=== PATIENT | female | born 1980 | race Caucasian/White ===

== ENCOUNTER 2017-02-11 14:33 | Observation (INO) ==
--- NOTE | 2017-02-11 14:45 | Emergency Department Note ---
Disposition Clinical Impression: Suicidal ideation Amitriptyline overdose Qualifiers: Encounter type: initial encounter Injury intent: intentional self-harm Qualified Code(s): T43.012A - Poisoning by tricyclic antidepressants, intentional self-harm, initial encounter Disposition: Admitted As Inpatient Condition: Undetermined Referrals: NONE,PCP [Primary Care Provider] - Forms: ED Satisfaction Letter Time of Disposition: 16:42 Psych HPI - General Chief Complaint: ED Psychiatric Symptoms Stated Complaint: SI Time Seen by Provider: 02/11/17 14:34 Source: patient, EMS Mode of arrival: EMS Limitations: no limitations Nursing Notes Reviewed: Yes Vital Signs Reviewed: Yes - History of Present Illness HPI Narrative: 37-year-old female with history of depression and previous suicidal ideation arrives to [facility] emergency department with concern for suicidal ideation and depression as well as patient taking 3-4 tablets of unknown dosage of amitriptyline as well as unknown doses and roughly 10-14 tablets of trazodone. The patient took the trazodone of the course of the past 10 hours. The amitriptyline was taken also over the course of the past 12 hours. EMS was called by family member and patient with concern for suicidal ideation. The patient demonstrated no tachycardia and no hypotension upon arrival from EMS in transport to the hospital. The patient is awake and alert but states she is very tired at this time. She denies any other complaints. She is resting comfortably in the room and following all commands appropriately. Pt complaint: suicidal ideation, feels depressed If medical clearance, reason: psychiatric condition Onset (ago): unknown History of similar episodes: Yes Improves with: none Worsens with: none Alleged intoxication: No Associated Psychiatric Symptoms: depression, suicidal ideation, auditory hallucinations, visual hallucinations Associated symptoms: Reports: insomnia Traumatic symptoms: denies traumatic injury Treatments prior to arrival: none Self harm or harm to others: admits thoughts of self harm, intentional overdose - Related Data Home Medications Medication Instructions Recorded Confirmed Divalproex (24 HR) [Depakote ER 500 mg PO Q12H 02/11/17 02/11/17 (24 HR)] Gabapentin [Neurontin] 400 mg PO TID 02/11/17 02/11/17 Melatonin [Melatonin] 5 mg PO HS 02/11/17 02/11/17 Allergies Allergy/AdvReac Type Severity Reaction Status Date / Time No Known Allergies Allergy Verified 01/25/15 15:32 All systems ED: reviewed and negative except as stated. Constitutional: Denies: fever, chills, weakness, weight change Eyes: Denies: vision change ENT ED: Denies: ear pain, congestion Cardiovascular: Denies: chest pain, palpitations, dyspnea on exertion, edema, syncope Respiratory: Denies: cough, dyspnea, wheezes Gastrointestinal: Denies: abdominal pain, nausea, vomiting Musculoskeletal: Denies: back pain, myalgia Neurological: Denies: headache, numbness, confusion, abnormal gait, vertigo Psychiatric: Reports: depression, suicidal thoughts, auditory hallucinations, visual hallucinations. Denies: homicidal thoughts Past Medical History - Past Medical History Attestation: Yes The following information was validated with the patient. Source: patient Medical history: Reports: no medical history, non-contributory Surgical history: Reports: Psychiatric history: Reports: anxiety, bipolar, depression, panic disorder, previous psychiatric hospitalization ANIME ARTIST history: Reports: no ANIME ARTIST history - Social History Smoking Status: Current every day smoker Smokeless Tobacco Status: No Alcohol use: Reports: none Drug use: Reports: opiates, marijuana, IV Drug Use, other Physical Exam - General Limitations: no limitations General appearance: alert, in no apparent distress - Head Head exam: atraumatic, normocephalic, normal inspection - Eye Eye exam: Present: normal appearance, PERRL, EOMI - ENT ENT exam: normal exam, normal oropharynx, mucous membranes moist - Neck Neck exam: Present: normal inspection, full ROM, trachea midline - Chest Chest inspection: Present: normal inspection, symmetric chest wall rise - Respiratory Respiratory exam: Present: normal lung sounds bilaterally - Cardiovascular Cardiovascular exam: Present: regular rate, normal rhythm, normal heart sounds - Abdominal Exam Abdominal exam: Present: soft, Non-Tender. Absent: tenderness, distention, guarding, rebound, rigidity - Extremities Exam Extremities exam: Present: normal inspection, full ROM. Absent: tenderness, pedal edema - Neurological Exam Neurological exam: Present: alert, oriented X3, CN II-XII intact - Psychiatric Psychiatric exam: Present: depressed, flat affect Course - Reevaluation(s) Reevaluation #1: spoke to Meliza in the [facility]. Time: 14:49 Vital Signs Temperature 97.5 F L 02/11/17 14:34 Pulse Rate 91 02/11/17 14:34 Respiratory Rate 16 02/11/17 14:34 Blood Pressure 151/101 02/11/17 14:34 O2 Sat by Pulse Oximetry 99 02/11/17 14:34 Temperature 97.5 F L 02/11/17 14:34 Pulse Rate 91 02/11/17 14:34 Respiratory Rate 16 02/11/17 14:34 Blood Pressure 151/101 02/11/17 14:34 O2 Sat by Pulse Oximetry 99 02/11/17 14:34 Oxygen Delivery Oxygen Delivery Room Air Psych - MDM Narrative Medical decision making narrative: patient's workup demonstrates no acute findings in the emergency Department. Given the patient's unknown dosage and amount of amitriptyline that she took, we will admit the patient to the hospitalist for further observation. All 3 EKGs performed here in the emergency department demonstrate no QTC prolongation or changes noted. We will admit the patient to the hospitalist service, accepted by Dr. Lopez. - Lab Data Result diagrams: 02/11/17 14:49 02/11/17 14:49 Lab Results 02/11/17 02/11/17 02/11/17 Range/Units 14:49 14:49 15:45 WBC 7.2 (4.3-11.1) K/mcL RBC 5.46 H (3.82-4.97) M/mcL Hgb 13.5 (11.5-15.4) g/dL Hct 42.3 (35.3-44.9) % MCV 77.5 L (83.0-100.0) fL MCH 24.7 L (28.0-33.3) pg MCHC 31.9 (31.6-35.5) g/dL RDW 18.1 H (11.5-14.5) % Plt Count 291 (140-400) K/mcL MPV 9.6 (9.4-12.4) fL Immature Gran % 0.3 (0-4) % Seg Neutrophils % 66.2 % Lymphocytes % 25.6 % Monocytes % 6.8 % Eosinophils % 0.7 % Basophils % 0.4 % Neutrophils # 4.8 (1.6-8.9) K/mcL Lymphocytes # 1.8 (0.6-4.6) K/mcL Monocytes # 0.5 (0.0-1.3) K/mcL Eosinophils # 0.1 (0.0-0.6) K/mcL Basophils # 0.0 (0.0-0.2) K/mcL Sodium 143 (136-145) mEq/L Potassium 3.9 (3.5-4.5) mEq/L Chloride 111 H (98-109) mEq/L Carbon Dioxide 24 (19-29) mEq/L BUN 8 (7-20) mg/dL Creatinine 0.83 (0.57-1.11) mg/dL Est GFR ( Amer) > 60 (> 60) Est GFR (Non-Af Amer) > 60 (> 60) BUN/Creatinine Ratio 10 (6-26) Glucose 89 (70-99) mg/dL Calculated Osmolality 294 (280-300) Calcium 9.5 (8.6-10.8) mg/dL Total Bilirubin 0.5 (0.2-1.2) mg/dL Direct Bilirubin 0.2 (0.0-0.5) mg/dL Indirect Bilirubin 0.3 (0.0-1.2) mg/dL AST 68 H (5-34) Units/L ALT 135 H (0-55) Units/L Alkaline Phosphatase 85 (38-126) Units/L Serum Total Protein 8.2 (6.0-8.3) g/dL Albumin 3.6 (3.5-5.0) g/dL Globulin 4.6 H (2.4-3.5) g/dL Albumin/Globulin Ratio 0.8 L (1.1-2.2) Urine Color Yellow (Yellow) Urine Clarity Clear (Clear) Urine pH 7.0 (5.0-8.0) pH Units Ur Specific [place] 1.013 (1.010-1.025) Urine Protein Negative (Neg-Trace) mg/dL Urine Glucose (UA) Normal (Normal) mg/dL Urine Ketones Negative (Negative) mg/dL Urine Blood Negative (Negative) Urine Nitrite Negative (Negative) Urine Bilirubin Negative (Negative) Urine Urobilinogen Normal (Normal) mg/dL Ur Leukocyte Esterase Moderate H (Negative) Urine Microscopic WBC 0-3 (0-3) per hpf Ur Squamous Epith Cells Few (None-Few) per lpf Salicylates < 5.0 L (15-30) mg/dL Acetaminophen < 1.0 L (10-30) mcg/mL Ethyl Alcohol < 10 (0-10) mg/dL - EKG Data EKG attestation: Yes I reviewed and interpreted this EKG. EKG results narrative: Heart rate 82 bpm. LA interval 128 ms. QTC 426 ms. Normal axis. Normal sinus rhythm. No ST elevation or ST depression noted. EKG #2 heart rate 78 bpm. LA interval 112 ms. QTc 449 ms. Normal axis. Normal sinus rhythm with no ST elevation or ST depression noted. EKG #3: Heart rate 95 bpm. QTc 425 ms. Normal axis. Normal sinus rhythm. No ST elevation or ST depression noted. Psychiatric Medical Clearance - Medical Clearance Checklist Medical History: Suicidal ideation (Acute) Amitriptyline overdose (Acute) Abdominal pain (Inactive) Abscess of skin or subcutaneous tissue (Inactive) Back pain (Inactive) Bronchitis (Inactive) Hypertension (Inactive) Lumbar back pain (Inactive) Lumbar pain (Inactive) Muscle spasm (Inactive) Sprain of ribs, initial encounter (Inactive) Strain of lumbar region (Inactive) Thoracic back pain (Inactive) No Social History Section defined Current Vitals: Last Vital Signs Temp 97.5 F L 02/11/17 14:34 Pulse 91 02/11/17 14:34 Resp 16 02/11/17 14:34 BP 151/101 02/11/17 14:34 Pulse Ox 99 02/11/17 14:34 Psychiatric Lab Panel: Drug Levels and Toxicity 02/11/17 14:49 Acetaminophen < 1.0 L Ethyl Alcohol < 10 Abnormal Labs: Abnormal lab results RBC 5.46 M/mcL (3.82-4.97) H 02/11/17 14:49 MCV 77.5 fL (83.0-100.0) L 02/11/17 14:49 MCH 24.7 pg (28.0-33.3) L 02/11/17 14:49 RDW 18.1 % (11.5-14.5) H 02/11/17 14:49 Chloride 111 mEq/L (98-109) H 02/11/17 14:49 AST 68 Units/L (5-34) H 02/11/17 14:49 ALT 135 Units/L (0-55) H 02/11/17 14:49 Globulin 4.6 g/dL (2.4-3.5) H 02/11/17 14:49 Albumin/Globulin Ratio 0.8 (1.1-2.2) L 02/11/17 14:49 Ur Leukocyte Esterase Moderate (Negative) H 02/11/17 15:45 Salicylates < 5.0 mg/dL (15-30) L 02/11/17 14:49 Acetaminophen < 1.0 mcg/mL (10-30) L 02/11/17 14:49 Statement of Medical Clearance: I have evaluated the patient, reviewed diagnostic information, and certify that the patient's medical condition is sufficiently stable that transfer to the psychiatric unit does not pose a significant risk of deterioration.
[2017-02-11 15:04] LABS: Basophils % 0.4 %; Eosinophils # 0.1 K/mcL (0.0-0.6); Eosinophils % 0.7 %; Hematocrit 42.3 % (35.3-44.9); Hemoglobin 13.5 g/dL (11.5-15.4); Immature Granulocytes % 0.3 % (0-4); Lymphocytes # 1.8 K/mcL (0.6-4.6); Lymphocytes % 25.6 %; Mean Corpuscular HGB Conc 31.9 g/dL (31.6-35.5); Mean Corpuscular Hemoglobin 24.7 pg (28.0-33.3); Mean Corpuscular Volume 77.5 fL (83.0-100.0); Mean Platelet Volume 9.6 fL (9.4-12.4); Monocytes # 0.5 K/mcL (0.0-1.3); Monocytes % 6.8 %; Neutrophils # 4.8 K/mcL (1.6-8.9); Platelet Count 291 K/mcL (140-400); Red Blood Count 5.46 M/mcL (3.82-4.97); Red Cell Distribution Width 18.1 % (11.5-14.5); Segmented Neutrophils % 66.2 %
[2017-02-11 15:21] LABS: Alanine Aminotransferase 135 Units/L (0-55); Albumin 3.6 g/dL (3.5-5.0); Albumin/Globulin Ratio 0.8 (1.1-2.2); Alkaline Phosphatase 85 Units/L (38-126); Aspartate Amino Transferase 68 Units/L (5-34); BUN/Creatinine Ratio 10 (6-26); Bilirubin,Direct 0.2 mg/dL (0.0-0.5); Bilirubin,Indirect 0.3 mg/dL (0.0-1.2); Bilirubin,Total 0.5 mg/dL (0.2-1.2); Blood Urea Nitrogen 8 mg/dL (7-20); Calcium 9.5 mg/dL (8.6-10.8); Carbon Dioxide 24 mEq/L (19-29); Chloride 111 mEq/L (98-109); Globulin 4.6 g/dL (2.4-3.5); Glucose 89 mg/dL (70-99); Osmolality,Calculated 294 (280-300); Potassium 3.9 mEq/L (3.5-4.5); Salicylate < 5.0 mg/dL (15-30); Sodium 143 mEq/L (136-145); Total Protein 8.2 g/dL (6.0-8.3); eGFR For African Americans > 60 (> 60); eGFR For Non-African Americans > 60 (> 60)
--- NOTE | 2017-02-11 15:26 | Emergency Department Note ---
START Narrative - START START: I examined this patient and my medical decision-making was reviewed with the Resident Physician. I agree with the documented findings, disposition and treatment plan as described except to the extent set forth below. 37-year-old female presents emergency room for depression. She has also had some suicidal thoughts. She took too much for medication last night which included trazodone amitriptyline. She has had no reports of vomiting. She has no complaints at this time. She denies any homicidal or suicidal thoughts to me but states she does feel depressed and just wanted to sleep. Plan to check labs. EKG appeared unremarkable. There is no issue with any QT prolongation. Patient will have a psychiatric evaluation and possible placement. Her vitals have remained stable.
[2017-02-11 15:57] LABS: Acetaminophen < 1.0 mcg/mL (10-30)
[2017-02-11 16:09] LABS: Ethanol < 10 mg/dL (0-10)
[2017-02-11 16:17] LABS: Bilirubin,Urine Negative (Negative); Blood,Urine Negative (Negative); Clarity,Urine Clear (Clear); Color,Urine Yellow (Yellow); Glucose,Urine (UA) Normal (Normal); Ketones,Urine Negative (Negative); Specific Gravity,Urine 1.013 (1.010-1.025)
[2017-02-11 16:18] LABS: Leukocyte Esterase,Urine Moderate (Negative); Nitrite,Urine Negative (Negative); Protein,Urine Negative (Neg-Trace); Urobilinogen,Urine Normal (Normal)
[2017-02-11 16:20] LABS: Squamous Epithelial Cell,Urine Few per lpf (None-Few)
[2017-02-11 16:21] LABS: WBC,Urine 0-3 per hpf (0-3)
[2017-02-11 17:00] LABS: Amphetamine Screen,Urine Positive ng/mL (Cutoff=1000); Barbiturate Screen,Urine Negative ng/mL (Cutoff=200); Benzodiazepines Screen,Urine Negative ng/mL (Cutoff=200); Cannabinoid Screen,Urine Positive ng/mL (Cutoff = 50); Cocaine Screen,Urine Negative ng/mL (Cutoff= 300); Opiate Screen,Urine Negative ng/mL (Cutoff=300); Phencyclidine Screen,Urine Negative ng/mL (Cutoff=25)
[2017-02-11] MEDS ORDERED: Naloxone 0.4 MG/ML INJ IVP PRN (19:15)
[2017-02-11] MEDS ORDERED: Acetaminophen 325 MG TABLET PO PRN (19:15)
[2017-02-11] MEDS ORDERED: Ondansetron 4 MG/2 ML VIAL IVP PRN (19:15)
--- NOTE | 2017-02-11 19:28 | Internal Med History&Physical ---
Date of Encounter: 02/11/17 Time of Encounter: 05:00 Assessment and Plan (1) Insomnia Current visit: Yes Status: Acute Qualifiers: Insomnia type: psychophysiologic Qualified Code(s): F51.04 - Psychophysiologic insomnia (2) Drug overdose Current visit: Yes Status: Acute Based on patient evaluation most likely she has bipolar with bentley induced by drug use. Looking at her medication record the patient was on valproic acid most likely she was using for bipolar disorder. Patient is currently not on this medication. Psychiatry was contacted to evaluate the patient ankur starting noticed nebulizer. For now after contacting poison control patient need to be monitored for next 24-hour for any prolonged QT, we will check urine tox screen Qualifiers: Encounter type: initial encounter Injury intent: accidental or unintentional Qualified Code(s): T50.901A - Poisoning by unspecified drugs, medicaments and biological substances, accidental (unintentional), initial encounter (3) Drug use Current visit: Yes Status: Acute May need drug rehabilitation on discharge (4) Tobacco use Current visit: Yes Status: Acute Add nicotine patch (5) HTN (hypertension) Current visit: Yes Status: Acute Add hydralazine as needed Qualifiers: Hypertension type: essential hypertension Qualified Code(s): I10 - Essential (primary) hypertension Internal Medicine - H&P: HPI Chief complaint: taking grandmother medication to help her to sleep Admitted From: Emergency Dept Plans for Post Hospital Care: Transfer Psych Facility History of present illness: Ms. Nuñez is a 37 year old female with past medical history of insomnia. Patient stated she used to take valproic acid gabapentin and melatonin. Patient is currently run out of her medication. Patient is complaining of racing thoughts. Patient denies any suicidal or homicidal ideation. Patient denies any delusion or hallucination. Patient stated she was trying to sleep she took 3 tablets of amitriptyline and 5 tablet of trazodone from her grandmother medication to help her to sleep. Patient stated that she could not sleep at all. Patient came to emergency room for further evaluation. Patient denies any chest pain or shortness of breath. Patient denies any palpitation. Patient denies any motor or sensory changes. Patient has history of drug use. Patient stated that she is taking any drugs that she can find including cocaine Heroin, marijuana, mushrooms, when asked to the patient if she taking any other recreational drugs she stated what ever she has she will take . Past Med Surg Social Fam HX - Past Medical History Psychiatric history: anxiety, bipolar, depression, panic disorder, previous psychiatric hospitalization - Past Surgical History Surgical History: - Social History Smoking Status: Current every day smoker Smokeless Tobacco Status: No Alcohol use: none Drug use: opiates, marijuana, IV Drug Use, other Internal Medicine - H&P: Meds Divalproex (24 HR) [Depakote ER (24 HR)] 500 mg PO Q12H 02/11/17 [History] Gabapentin [Neurontin] 400 mg PO TID 02/11/17 [History] Melatonin [Melatonin] 5 mg PO HS 02/11/17 [History] 3 Allergy/AdvReac Type Severity Reaction Status Date / Time No Known Allergies Allergy Verified 01/25/15 15:32 All Systems PM: A 10-system review of systems was performed and is negative for pertinent findings except as documented above in the HPI. - Constitutional Constitutional: no chills, no fever(s), no malaise - Constitutional Vitals: Temp Pulse Resp BP Pulse Ox 98.2 F 91 18 150/111 99 02/11/17 18:37 02/11/17 18:37 02/11/17 18:37 02/11/17 18:37 02/11/17 18:37 General appearance: Present: A&O X 3, obese - Head Head exam: Present: atraumatic, normocephalic - Neck Neck exam general surgery: Present: supple, trachea midline. Absent: lymphadenopathy - Respiratory Respiratory exam: Present: CTAB. Absent: accessory muscle use, rales, rhonchi, wheezes Internal Med - H&P Results - Labs CBC & Chem 7: 02/11/17 14:49 02/11/17 14:49
[2017-02-11 21:06] LABS: Basophils % 0.3 %; Eosinophils # 0.1 K/mcL (0.0-0.6); Eosinophils % 1.4 %; Hematocrit 40.6 % (35.3-44.9); Hemoglobin 12.9 g/dL (11.5-15.4); Immature Granulocytes % 0.3 % (0-4); Lymphocytes # 2.2 K/mcL (0.6-4.6); Lymphocytes % 27.7 %; Mean Corpuscular HGB Conc 31.8 g/dL (31.6-35.5); Mean Corpuscular Hemoglobin 24.4 pg (28.0-33.3); Mean Corpuscular Volume 76.9 fL (83.0-100.0); Mean Platelet Volume 9.4 fL (9.4-12.4); Monocytes # 0.6 K/mcL (0.0-1.3); Monocytes % 7.2 %; Neutrophils # 4.9 K/mcL (1.6-8.9); Platelet Count 300 K/mcL (140-400); Red Blood Count 5.28 M/mcL (3.82-4.97); Red Cell Distribution Width 17.4 % (11.5-14.5); Segmented Neutrophils % 63.1 %
[2017-02-11 21:17] LABS: Magnesium 2.2 mg/dL (1.6-2.6); Phosphorous 4.2 mg/dL (2.3-4.7)
[2017-02-11 21:18] LABS: BUN/Creatinine Ratio 11 (6-26); Blood Urea Nitrogen 9 mg/dL (7-20); Calcium 9.6 mg/dL (8.6-10.8); Carbon Dioxide 25 mEq/L (19-29); Chloride 110 mEq/L (98-109); Glucose 106 mg/dL (70-99); Osmolality,Calculated 299 (280-300); Potassium 3.8 mEq/L (3.5-4.5); Sodium 145 mEq/L (136-145); eGFR For African Americans > 60 (> 60); eGFR For Non-African Americans > 60 (> 60)
[2017-02-11] MEDS: Nicotine 21 MG PATCH.TD24 TD SCH (21:22)
[2017-02-11] MEDS: 0.9 % Sodium Chloride 1,000 ML IVC SCH (21:24)
[2017-02-12] MEDS ORDERED: Ondansetron 4 MG/2 ML VIAL IVP PRN (01:44)
[2017-02-12] MEDS ORDERED: Ondansetron 4 MG/2 ML VIAL IVP SCH (04:00)
[2017-02-12 05:07] VITALS: BP 158/96
[2017-02-12] MEDS: 0.9 % Sodium Chloride 1,000 ML IVC SCH (05:11)
[2017-02-12] MEDS: Nicotine 21 MG PATCH.TD24 TD SCH (09:02)
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
--- NOTE | 2017-02-12 14:30 | Consult Note ---
Date of Encounter: 02/12/17 Time of Encounter: 13:10 Assessment & Recommendation (1) Drug overdose Current visit: Yes Status: Acute Assessment & Recommendation: Patient is high risk for suicide. She will be admitted to a psychiatric unit on a pink slip for further evaluation and treatment. Qualifiers: Encounter type: subsequent encounter Injury intent: undetermined intent Qualified Code(s): T50.904D - Poisoning by unspecified drugs, medicaments and biological substances, undetermined, subsequent encounter (2) Polysubstance abuse Current visit: Yes Status: Chronic History of Present Illness Patient: new to practice Requesting Physician: Andrei Gerard MD Reason for consult: Suicide attempt by overdosing on medication History of present illness: Ms. Nuñez is a 37 year old female admitted to the hospital for evaluation treatment of drug overdose on trazodone and amitriptyline. Patient has history of bipolar disorder and substance abuse. UDS positive for THC and amphetamine. Patient is noncompliant with treatment or medication and previously attempted overdose and did not follow-up. Patient stated that she will continue to use drugs and alcohol and was not able to attend outpatient appointments and ran out of the medication as a result. She is not aware of what medication she was taking. Patient is suicidal risk and needed to be hospitalized in 1 A. CC: Andrei Gerard MD Past Med Surg Social Fam HX - Past Medical History Medical history: no medical history, non-contributory - Past Psychiatric History Psychiatric history: Reports: bipolar, previous psychiatric hospitalization Past psychiatric history details: Bipolar and substance abuse, history of hospitalization - Past Surgical History Surgical History: - Social History Smoking Status: Current every day smoker Smokeless Tobacco Status: No Alcohol use: none Drug use: opiates, marijuana, IV Drug Use, other Medications & Allergies Divalproex (24 HR) [Depakote ER (24 HR)] 500 mg PO Q12H 02/11/17 [History] Gabapentin [Neurontin] 400 mg PO TID 02/11/17 [History] Melatonin [Melatonin] 5 mg PO HS 02/11/17 [History] 3 Allergy/AdvReac Type Severity Reaction Status Date / Time No Known Allergies Allergy Verified 01/25/15 15:32 Review of Systems Psychiatric: Reports: suicidal ideation Mental Status Exam Patient orientation: Yes Person, Yes Time, Yes Place Level of alertness: Alert Patient appearance: Appropriate, Unkempt, Disheveled Behavior: cooperative, anxious, restless Psychomotor activity: Increased Eye contact: Maintains Eye Contact Mood description: Euthymic/stable, Anxious, Labile Affect description: congruent with mood, labile, dysphoric Speech pattern: Normal rate, Normal rhythm, Normal tone Speech volume: Normal Thought process: Linear, Goal Oriented, Racing Thought content: Yes Suicidal ideation, No Homicidal ideation, No Overt delusions Perceptual disturbances: No Auditory hallucinations, No Visual hallucinations Attention span: Capable of Focused Attention Memory description: Grossly Intact Patient reliability: Reliable Historian Intelligence estimate: Average Judgment: Limited Insight: Partial Results - Vital Signs Vital signs: Temp Pulse Resp BP Pulse Ox 98.3 F 71 16 158/96 100 02/12/17 05:06 02/12/17 05:06 02/12/17 05:06 02/12/17 05:06 02/12/17 05:06 - Labs Labs: Laboratory Last Values WBC 7.8 K/mcL (4.3-11.1) 02/11/17 20:58 RBC 5.28 M/mcL (3.82-4.97) H 02/11/17 20:58 Hgb 12.9 g/dL (11.5-15.4) 02/11/17 20:58 Hct 40.6 % (35.3-44.9) 02/11/17 20:58 MCV 76.9 fL (83.0-100.0) L 02/11/17 20:58 MCH 24.4 pg (28.0-33.3) L 02/11/17 20:58 MCHC 31.8 g/dL (31.6-35.5) 02/11/17 20:58 RDW 17.4 % (11.5-14.5) H 02/11/17 20:58 Plt Count 300 K/mcL (140-400) 02/11/17 20:58 MPV 9.4 fL (9.4-12.4) 02/11/17 20:58 Immature Gran % 0.3 % (0-4) 02/11/17 20:58 Seg Neutrophils % 63.1 % 02/11/17 20:58 Lymphocytes % 27.7 % 02/11/17 20:58 Monocytes % 7.2 % 02/11/17 20:58 Eosinophils % 1.4 % 02/11/17 20:58 Basophils % 0.3 % 02/11/17 20:58 Neutrophils # 4.9 K/mcL (1.6-8.9) 02/11/17 20:58 Lymphocytes # 2.2 K/mcL (0.6-4.6) 02/11/17 20:58 Monocytes # 0.6 K/mcL (0.0-1.3) 02/11/17 20:58 Eosinophils # 0.1 K/mcL (0.0-0.6) 02/11/17 20:58 Basophils # 0.0 K/mcL (0.0-0.2) 02/11/17 20:58 Sodium 145 mEq/L (136-145) 02/11/17 20:58 Potassium 3.8 mEq/L (3.5-4.5) 02/11/17 20:58 Chloride 110 mEq/L (98-109) H 02/11/17 20:58 Carbon Dioxide 25 mEq/L (19-29) 02/11/17 20:58 BUN 9 mg/dL (7-20) 02/11/17 20:58 Creatinine 0.83 mg/dL (0.57-1.11) 02/11/17 20:58 Est GFR ( Amer) > 60 (> 60) 02/11/17 20:58 Est GFR (Non-Af Amer) > 60 (> 60) 02/11/17 20:58 BUN/Creatinine Ratio 11 (6-26) 02/11/17 20:58 Glucose 106 mg/dL (70-99) H 02/11/17 20:58 Calculated Osmolality 299 (280-300) 02/11/17 20:58 Calcium 9.6 mg/dL (8.6-10.8) 02/11/17 20:58 Phosphorus 4.2 mg/dL (2.3-4.7) 02/11/17 20:58 Magnesium 2.2 mg/dL (1.6-2.6) 02/11/17 20:58 Total Bilirubin 0.5 mg/dL (0.2-1.2) 02/11/17 14:49 Direct Bilirubin 0.2 mg/dL (0.0-0.5) 02/11/17 14:49 Indirect Bilirubin 0.3 mg/dL (0.0-1.2) 02/11/17 14:49 AST 68 Units/L (5-34) H 02/11/17 14:49 ALT 135 Units/L (0-55) H 02/11/17 14:49 Alkaline Phosphatase 85 Units/L (38-126) 02/11/17 14:49 B-Natriuretic Peptide 15 pg/mL (0-100) 02/11/17 20:58 Serum Total Protein 8.2 g/dL (6.0-8.3) 02/11/17 14:49 Albumin 3.6 g/dL (3.5-5.0) 02/11/17 14:49 Globulin 4.6 g/dL (2.4-3.5) H 02/11/17 14:49 Albumin/Globulin Ratio 0.8 (1.1-2.2) L 02/11/17 14:49 Urine Color Yellow (Yellow) 02/11/17 15:45 Urine Clarity Clear (Clear) 02/11/17 15:45 Urine pH 7.0 pH Units (5.0-8.0) 02/11/17 15:45 Ur Specific [place] 1.013 (1.010-1.025) 02/11/17 15:45 Urine Protein Negative mg/dL (Neg-Trace) 02/11/17 15:45 Urine Glucose (UA) Normal mg/dL (Normal) 02/11/17 15:45 Urine Ketones Negative mg/dL (Negative) 02/11/17 15:45 Urine Blood Negative (Negative) 02/11/17 15:45 Urine Nitrite Negative (Negative) 02/11/17 15:45 Urine Bilirubin Negative (Negative) 02/11/17 15:45 Urine Urobilinogen Normal mg/dL (Normal) 02/11/17 15:45 Ur Leukocyte Esterase Moderate (Negative) H 02/11/17 15:45 Urine Microscopic WBC 0-3 per hpf (0-3) 02/11/17 15:45 Ur Squamous Epith Cells Few per lpf (None-Few) 02/11/17 15:45 Urine Test Negative (Negative) 02/11/17 15:45 Salicylates < 5.0 mg/dL (15-30) L 02/11/17 14:49 Urine Opiates Screen Negative ng/mL (Vmvhta=534) 02/11/17 15:50 Acetaminophen < 1.0 mcg/mL (10-30) L 02/11/17 14:49 Ur Barbiturates Screen Negative ng/mL (Omrbqb=992) 02/11/17 15:50 Ur Phencyclidine Scrn Negative ng/mL (Cutoff=25) 02/11/17 15:50 Ur Amphetamines Screen Positive ng/mL (Omazqa=1702) H 02/11/17 15:50 U Benzodiazepines Scrn Negative ng/mL (Mskdrl=068) 02/11/17 15:50 Urine Cocaine Screen Negative ng/mL (Cutoff= 300) 02/11/17 15:50 U Marijuana (THC) Screen Positive ng/mL (Cutoff = 50) H 02/11/17 15:50 Ethyl Alcohol < 10 mg/dL (0-10) 02/11/17 14:49 Consult Discharge Plan - Plan Referrals: NONE,PCP [Primary Care Provider] -
--- NOTE | 2017-02-12 17:17 | Electrocardiograph Report ---
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
--- NOTE | 2017-02-12 17:27 | Electrocardiograph Report ---
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
--- NOTE | 2017-02-12 17:31 | Electrocardiograph Report ---
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
--- NOTE | 2017-02-13 08:09 | Electrocardiograph Report ---
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
== END 2017-02-12 17:17 ==
LOC: EMEROO 14:33 → 2ANU 14:33 → SUATTDRO 16:54 → 2ANU 18:12
PROVIDERS: ADMIT Hospitalist; ATTEND Internal Medicine

== ENCOUNTER 2017-02-12 17:21 | Inpatient (IN) ==
[2017-02-12] MEDS ORDERED: Haloperidol Lactate 5 MG/ML VIAL IM PRN (17:27)
[2017-02-12] MEDS ORDERED: *HR* LORazepam 1 MG TABLET PO PRN (17:27)
[2017-02-12] MEDS ORDERED: MOM Conc 10 ML UD.LIQ PO PRN (17:27)
[2017-02-12] MEDS ORDERED: Mag Hydrox/Al Hydrox/Simeth 30 ML UDC PO PRN (17:27)
[2017-02-12] MEDS ORDERED: *HR* LORazepam 2 MG/ML VIAL IM PRN (17:27)
[2017-02-12] MEDS ORDERED: Divalproex (24 HR) 500 MG TABLET PO SCH (17:30)
[2017-02-12] MEDS: Gabapentin 400 MG CAPSULE PO SCH ×3 (18:26→22:42)
[2017-02-12] MEDS: Melatonin 3 MG TABLET PO SCH (20:42)
[2017-02-12] MEDS: Nicotine 2 MG GUM BC PRN (21:39)
[2017-02-12] MEDS: Acetaminophen 325 MG TABLET PO PRN (23:05)
[2017-02-13] MEDS: Nicotine 2 MG GUM BC PRN ×7 (02:42→23:09)
[2017-02-13] MEDS: hydrOXYzine pamoate 25 MG CAPSULE PO PRN ×3 (03:01→23:09)
[2017-02-13] MEDS: traZODone 50 MG TABLET PO PRN ×2 (03:01→21:06)
[2017-02-13] MEDS: Acetaminophen 325 MG TABLET PO PRN ×3 (07:17→23:09)
[2017-02-13] MEDS: Gabapentin 400 MG CAPSULE PO SCH (08:47)
[2017-02-13] MEDS: Divalproex (24 HR) 500 MG TABLET PO SCH ×2 (08:47→21:06)
--- NOTE | 2017-02-13 12:57 | Psychiatry History & Physical ---
Date of Encounter: 02/13/17 Time of Encounter: 12:30 History of Present Illness Patient Stated Chief Complaint: Overdose Medicare Admission Attestation: For traditional Medicare patients the provided hospital inpatient services are reasonable and necessary and in the case of services not specified as inpatient -only under 42 CFR 419.22 (n), that they are appropriately provided as inpatient services in accordance 42 CFR 412.3. For Critical Access Hospital the patient may reasonably be expected to be discharged or transferred to a hospital within 96 hours after admission to the Critical Access Hospital. Admitted From: Intrahospital Transfer (2A) History of Present Illness: Ms. Nuñez is a 37 year old female admitted from the medical floor after medical stabilization. She was seen in consultation to evaluate overdose on amitriptyline and trazodone in a suicide attempt. Patient has long history of substance abuse and noncompliance with treatment for bipolar disorder. She is presenting with mood swings, pressure speech, hyperactivity and manic behavior. We increased her Depakote to 500 mg twice a day. She was encouraged to participate in activities and to develop a safety plan. paste worker is working on discharge plans. Past Med Surg Social Fam HX - Past Medical History Medical history: no medical history, non-contributory - Past Psychiatric History Psychiatric history: Reports: bipolar, previous psychiatric hospitalization - Past Surgical History Surgical History: - Social History Smoking Status: Current every day smoker Smokeless Tobacco Status: No Alcohol use: none Drug use: opiates, marijuana, IV Drug Use, other Medications & Allergies Divalproex (24 HR) [Depakote ER (24 HR)] 500 mg PO Q12H 02/11/17 [History] Gabapentin [Neurontin] 400 mg PO TID 02/11/17 [History] Melatonin [Melatonin] 5 mg PO HS 02/11/17 [History] 3 Allergy/AdvReac Type Severity Reaction Status Date / Time No Known Allergies Allergy Verified 01/25/15 15:32 Review of Systems Psychiatric: Reports: suicidal ideation, irritability, mood swings Mental Status Exam Patient orientation: Yes Person, Yes Time, Yes Place Level of alertness: Alert Patient appearance: Appropriate, Well Groomed Behavior: calm, cooperative, talkative, dramatic Psychomotor activity: Increased Eye contact: Maintains Eye Contact Mood description: Euthymic/stable, Labile Affect description: congruent with mood, full range, labile, euphoric Speech pattern: Normal rate, Normal rhythm, Normal tone, Pressured Speech volume: Normal Thought process: Linear, Goal Oriented Thought content: No Suicidal ideation, No Homicidal ideation, No Overt delusions Perceptual disturbances: No Auditory hallucinations, No Visual hallucinations Attention span: Capable of Focused Attention Memory description: Grossly Intact Patient reliability: Reliable Historian Intelligence estimate: Average Judgment: Limited Insight: Partial Results - Vital Signs Vital signs: Temp Pulse Resp BP 98 F 88 18 137/104 02/13/17 09:00 02/13/17 09:00 02/13/17 09:00 02/13/17 09:00 Assessment and Plan (1) Bipolar disorder, manic Current visit: Yes Status: Acute Plan: Admit inpatient for safety and stabilization, Close observation, Suicide Precautions per unit protocol, Encourage participation in unit milieu, Group Therapy, Monitor sleep, Monitor appetite Additional Plan: Will check Depakote level Risks, benefits, side effects, alternatives discussed w/pt: Yes Patient agreeable to treatment: Yes (2) Polysubstance abuse Current visit: No Status: Chronic Plan: Admit inpatient for safety and stabilization, Close observation, Suicide Precautions per unit protocol, Encourage participation in unit milieu, Group Therapy, Monitor sleep, Monitor appetite Risks, benefits, side effects, alternatives discussed w/pt: Yes Patient agreeable to treatment: Yes
[2017-02-13] MEDS: Gabapentin 300 MG CAPSULE PO SCH ×2 (14:47→21:06)
[2017-02-13] MEDS: Melatonin 3 MG TABLET PO SCH (21:06)
[2017-02-14] MEDS: Nicotine 2 MG GUM BC PRN ×2 (05:53→09:57)
[2017-02-14] MEDS: Divalproex (24 HR) 500 MG TABLET PO SCH (08:06)
[2017-02-14] MEDS: Gabapentin 300 MG CAPSULE PO SCH (08:06)
[2017-02-14 09:16] VITALS: BP 138/92
--- NOTE | 2017-02-14 10:55 | Discharge Summary ---
Date of Encounter: 02/14/17 Time of Encounter: 10:49 Diagnosis - Discharge Diagnosis (1) Bipolar disorder, manic Status: Acute (2) Polysubstance abuse Status: Chronic Medications - Discharge Medications Prescriptions: Divalproex (24 HR) [Depakote ER (24 HR)] 500 mg PO 0900,2100 #60 tab.er.24h Gabapentin [Neurontin] 600 mg PO TID #120 capsule Melatonin 5 mg PO HS #30 tablet Divalproex (24 HR) [Depakote ER (24 HR)] 500 mg PO 0900,2100 #60 tab.er.24h 06/01 [Rx] Gabapentin [Neurontin] 600 mg PO TID #120 capsule 02/14/17 [Rx] Melatonin 5 mg PO HS #30 tablet 02/14/17 [Rx] 3 Allergy/AdvReac Type Severity Reaction Status Date / Time No Known Allergies Allergy Verified 01/25/15 15:32 Results Procedures and tests throughout hospitalization: Completed Lab Orders Category Date Time Status Valproate AM 0400 Lab 02/14/17 07:48 Completed Provider Date of admission: 02/12/17 17:21 Primary care physician: PCP NONE Discharging clinician: Caden Caballero Assessment and Plan - Patient/Caregiver Discharge Instructions Activity: resume usual activities as tolerated Diet: regular diet - Follow up Plan Follow up with: Eusebio Conn [facility] [place]] - 02/19/17 12:30 pm (The above appointment is with Lea Morejon. When you come to your first appointment, you will be completing paperwork, meeting with a counselor, and developing a treatment plan. You will receive follow- up appointments for on-going services , which could include community support, mental health and substance abuse counseling, groups/partial hospitalization programming, medication assisted treatment, and psychiatric medication management. Please bring the following with you to your first visit to the clinic: 1) proof of household income (two consecutive pay stubs, social security award letter, bank statement, statement letter from [facility], child support statement, IRS 1040 or W2 form, or a statement from the person who financially supports you stating they help provide for your basic needs), 2) proof of residency (drivers license, a piece of mail showing your address, a statement from person you live with verifying you live at their address), 3) your social security card, 4) photo ID, 5) your insurance card (if you have commercial insurance you must call to obtain a prior authorization number before you arrive to your first appointment) and 6) if you do not have insurance but have applied for Medicaid, please bring verification you have applied. The above appointment(s) reflects first availability. You may contact the office regularly to check for cancellations that may allow you to be seen sooner.) [facility] [Outside] - 02/20/17 10:15 am (The above appointment is withGloria for primary health care and medication management services. Please arrive 15 minutes early to complete paperwork. Please bring your insurance card, photo ID and medications in their original bottles. If you do not have insurance, bring proof of income to apply for the sliding fee scale. If you are unable to keep this appointment, 24 hour business notice of cancellation is expected. ) Functional capacity at discharge: independent ambulation Overall status at discharge: Stable Disposition: Home, Self-Care Hospital Course Hospital course: Ms. Nuñez is a 37 year old female admitted from the medical for evaluation suicidal attempt by overdose. For details admission please see H&P On the unit patient's medication was reviewed. Depakote was increased to 500 mg twice daily. Patient responded well to medication she was showing less manic behavior, this hyperactive and not labile her speech was nonpressured, she was cooperative and attended activities and denied any suicidal ideation. She was educated about compliance with treatment and substance abuse issues. On discharge patient was medically stable tolerated the medication and aware of her discharge plans and follow-up. Discharge planning was completed by social director. Patient was discharged in stable condition. - Time Spent with Patient Total time spent providing and/or coordinating discharge services: Less than 30 minutes Quality - Multiple Antipsychotics Patient discharged on 2 or more antipsychotic medications: No Procedures - Procedures Procedures: Medication Management, Crisis Stabilization, Supportive Therapy, Group Therapy, Psychoeducational Therapy Mental Status Exam - Mental Status Exam Patient orientation: Yes Person, Yes Time, Yes Place Level of alertness: Alert Patient appearance: Appropriate, Well Groomed Behavior: calm, cooperative Psychomotor activity: Increased Eye contact: Maintains Eye Contact Mood description: Euthymic/stable Affect description: congruent with mood, full range Speech pattern: Normal rate, Normal rhythm, Normal tone Speech Volume: Normal Thought process: Linear, Goal Oriented Thought Content: No Suicidal ideation, No Homicidal ideation, No Overt delusions Perceptual Disturbances: No Auditory hallucinations, No Visual hallucinations Judgment: Limited Insight: Partial
== END 2017-02-14 14:10 | disposition home or self-care (01) | DRG 812 ==
LOC: 1ANU 17:21
PROVIDERS: ADMIT Psychiatry & Neurology Psychiatry; ATTEND Psychiatry & Neurology Psychiatry

== ENCOUNTER 2017-07-26 05:25 | Inpatient (IN) ==
--- NOTE | 2017-07-26 05:39 | Emergency Department Note ---
Disposition Clinical Impression: Suicidal ideation, Polysubstance abuse Bipolar disorder Qualifiers: Active/Remission status: currently active Current bipolar episode type: mixed Current episode severity: unspecified Qualified Code(s): F31.60 - Bipolar disorder, current episode mixed, unspecified Disposition: Admitted As Inpatient Condition: Good Forms: ED Satisfaction Letter Time of Disposition: 06:16 Psych HPI - General Chief Complaint: ED Psychiatric Symptoms Stated Complaint: SI/HI Time Seen by Provider: 07/26/17 05:34 Source: patient Nursing Notes Reviewed: Yes Vital Signs Reviewed: Yes - History of Present Illness HPI Narrative: 37-year-old female arrives via squad with reported substance abuse, acute intoxication of methamphetamines, and ingestion of 30 tablets of melatonin. Patient states she is not sure the exact time of ingestion Patient reports that she was at a friend's house, ended up going to [place], had taken some narcotic she can sleep, ended up taking more because it was not working. She states that this frightened her so she thought it would be in her best interest to call the police, and asked them to call the squad stated. Patient does mention thoughts of self-harm. She states the first two days of meth she was trying to get high, however she was intending to hurt herself today. She initially mentions that she was using the melatonin to help her sleep, but mentions that she had taken it to hurt herself as well. She mentions this prescription. She denies any injury or fall, loss of consciousness, recent illness, auditory hallucinations, homicidal ideation, chest pain, shortness of breath. - Related Data Previous Rx's Medication Instructions Recorded Divalproex (24 HR) [Depakote ER 500 mg PO 0900,2100 #60 tab.er.24h 02/14/17 (24 HR)] Gabapentin [Neurontin] 600 mg PO TID #120 capsule 02/14/17 Melatonin 5 mg PO HS #30 tablet 02/14/17 Allergies Allergy/AdvReac Type Severity Reaction Status Date / Time No Known Allergies Allergy Verified 01/25/15 15:32 All systems ED: reviewed and negative except as stated. Review of Systems: As Per HPI Limitations: ROS unobtainable due to patients medical condition Constitutional: Denies: fever, chills Eyes: Denies: vision change ENT ED: Denies: throat pain Cardiovascular: Denies: palpitations Respiratory: Denies: dyspnea Gastrointestinal: Denies: abdominal pain, nausea, vomiting Genitourinary: Denies: dysuria Musculoskeletal: Denies: back pain Integumentary: Denies: rash Neurological: Denies: headache, weakness, numbness, paresthesias Psychiatric: Reports: as per HPI Endocrine: Denies: fatigue Hematological/Lymphatic: Denies: easy bleeding Allergic/Immunologic: Denies: facial swelling Past Medical History - Past Medical History Medical history: Reports: no medical history Surgical history: Reports: Psychiatric history: Reports: anxiety, ADHD, bipolar, depression, prior suicide attempt, schizophrenia, previous psychiatric hospitalization [employer] history: Reports: no [employer] history - Social History Smoking Status: Current every day smoker Smokeless Tobacco Status: No Alcohol use: Reports: none Drug use: Reports: cocaine, opiates, marijuana, methamphetamine, IV Drug Use, prescription drug abuse, other Physical Exam - General General appearance: alert, in no apparent distress, anxious - Head Head exam: atraumatic, normocephalic - Eye Eye exam: Present: PERRL, EOMI. Absent: conjunctival injection - ENT ENT exam: mucous membranes moist, normal external ear exam - Neck Neck exam: Present: full ROM. Absent: meningismus - Chest Chest inspection: Present: normal inspection, symmetric chest wall rise - Respiratory Respiratory exam: Present: normal lung sounds bilaterally. Absent: respiratory distress - Cardiovascular Cardiovascular exam: Present: regular rate, normal rhythm - Abdominal Exam Abdominal exam: Present: soft, Non-Tender - Extremities Exam Extremities exam: Present: normal inspection, full ROM, normal capillary refill - Back Exam Back exam: Present: full ROM. Absent: CVA tenderness (R), CVA tenderness (L) - Neurological Exam Neurological exam: Present: alert - Psychiatric Psychiatric exam: Present: normal affect, normal mood - Skin Skin exam: Present: warm, dry, intact, normal color. Absent: rash, cyanosis, diaphoresis Course Course Narrative: Patient is a 37-year-old female smoker that arrives via squad with reported methamphetamine use. Patient has known history of polysubstance abuse, bipolar disorder. Reportedly patient had been utilizing methamphetamines for 3 days, and had taken 30 tablets of prescription melatonin. Police authorities were at the scene ([place]) and they had called [employer]. Patient does report suicidal ideation. She denies any other concerns. She does have a history of bipolar disorder, previous suicidal ideations, suicidal attempts. I do feel she has a significant psychiatric history, she is reporting suicidal ideations, he do feel she would benefit from behavioral health evaluation Initial examination she appeared agitated, but had calmed down and was able to provide me a reliable history. She is now resting comfortably in exam bed no acute distress. She is now cooperative. On examination She is clinically sober , alert. No noted injuries or trauma to her head face extremities. She has a mild abrasion just lateral to her right lower lip, does not appear infected. Lungs clear to auscultation. Heart regular rate and rhythm. No abdominal pain. She does not appear hypovolemic. I will attempt to medically clear her for 1A evaluation. Home Meds per EMR from previous admission include. Divalproex (24 HR) [Depakote ER (24 HR)] 500 mg PO 0900,2100 #60 tab.er.24h Gabapentin [Neurontin] 600 mg PO TID #120 capsule Melatonin 5 mg PO HS #30 tablet - Reevaluation(s) Reevaluation #1: I spoke with Sunita at poison control. She advised standard overdose work up including EKG and hepatic panel. Otherwise no other rec'd except for monitor patient for any symptoms. At this time it's the end of my shift, care of this patient will be transferred over to day shift provider Parker Morley CNP who will handle. Pt discussed with Parker. At this point I feel patient will be evaluated by 1a if medically cleared , and may be admitted. However, please see Parker's documentation for final details on patient's disposition. Time: 06:09 Vital Signs Temperature 98.7 F 07/26/17 05:28 Pulse Rate 82 07/26/17 05:28 Respiratory Rate 16 07/26/17 05:28 Blood Pressure 163/104 07/26/17 05:28 O2 Sat by Pulse Oximetry 99 07/26/17 05:28 Temperature 98.7 F 07/26/17 05:28 Pulse Rate 82 07/26/17 05:28 Respiratory Rate 16 07/26/17 05:28 Blood Pressure 163/104 07/26/17 05:28 O2 Sat by Pulse Oximetry 99 07/26/17 05:28 Oxygen Delivery Oxygen Delivery Room Air Psych - Lab Data Lab Results 07/26/17 07/26/17 Range/Units 05:30 05:30 Urine Color Yellow (Yellow) Urine Clarity Clear (Clear) Urine pH 6.0 (5.0-8.0) pH Units Ur Specific [place] 1.019 (1.010-1.025) Urine Protein Negative (Neg-Trace) mg/dL Urine Glucose (UA) Normal (Normal) mg/dL Urine Ketones Negative (Negative) mg/dL Urine Blood Negative (Negative) Urine Nitrite Negative (Negative) Urine Bilirubin Negative (Negative) Urine Urobilinogen Normal (Normal) mg/dL Ur Leukocyte Esterase Small H (Negative) Urine Microscopic RBC 3-5 H (0-3) per hpf Urine Microscopic WBC 5-15 H (0-3) per hpf Ur Squamous Epith Cells Many H (None-Few) per lpf Urine Bacteria None Seen (None-Few) per hpf Hyaline Casts None Seen (None-Few) per lpf Urine Test Negative (Negative) Psychiatric Medical Clearance - Medical Clearance Checklist Medical History: Suicidal ideation (Acute) Amitriptyline overdose (Acute) Drug overdose (Acute) Insomnia (Acute) Drug use (Acute) Tobacco use (Chronic) HTN (hypertension) (Chronic) Polysubstance abuse (Chronic) Bipolar disorder, manic (Acute) Abdominal pain (Inactive) Abscess of skin or subcutaneous tissue (Inactive) Back pain (Inactive) Bronchitis (Inactive) Hypertension (Inactive) Lumbar back pain (Inactive) Lumbar pain (Inactive) Muscle spasm (Inactive) Sprain of ribs, initial encounter (Inactive) Strain of lumbar region (Inactive) Thoracic back pain (Inactive) No Social History Section defined Current Vitals: Last Vital Signs Temp 98.7 F 07/26/17 05:28 Pulse 82 07/26/17 05:28 Resp 16 07/26/17 05:28 BP 163/104 07/26/17 05:28 Pulse Ox 99 07/26/17 05:28 Abnormal Labs: Abnormal lab results Ur Leukocyte Esterase Small (Negative) H 07/26/17 05:30 Urine Microscopic RBC 3-5 per hpf (0-3) H 07/26/17 05:30 Urine Microscopic WBC 5-15 per hpf (0-3) H 07/26/17 05:30 Ur Squamous Epith Cells Many per lpf (None-Few) H 07/26/17 05:30 Statement of Medical Clearance: I have evaluated the patient, reviewed diagnostic information, and certify that the patient's medical condition is sufficiently stable that transfer to the psychiatric unit does not pose a significant risk of deterioration.
[2017-07-26 05:49] LABS: Bilirubin,Urine Negative (Negative); Blood,Urine Negative (Negative); Clarity,Urine Clear (Clear); Color,Urine Yellow (Yellow); Glucose,Urine (UA) Normal (Normal); Ketones,Urine Negative (Negative); Leukocyte Esterase,Urine Small (Negative); Nitrite,Urine Negative (Negative); Protein,Urine Negative (Neg-Trace); Specific Gravity,Urine 1.019 (1.010-1.025); Urobilinogen,Urine Normal (Normal)
[2017-07-26 05:50] LABS: Bacteria,Urine None Seen per hpf (None-Few); Hyaline Casts,Urine None Seen per lpf (None-Few); Squamous Epithelial Cell,Urine Many per lpf (None-Few)
[2017-07-26 06:08] LABS: Basophils % 0.5 %; Eosinophils # 0.3 K/mcL (0.0-0.6); Eosinophils % 3.8 %; Hematocrit 35.7 % (35.3-44.9); Hemoglobin 11.4 g/dL (11.5-15.4); Immature Granulocytes % 0.3 % (0-4); Lymphocytes # 1.9 K/mcL (0.6-4.6); Lymphocytes % 23.9 %; Mean Corpuscular HGB Conc 31.9 g/dL (31.6-35.5); Mean Corpuscular Hemoglobin 24.7 pg (28.0-33.3); Mean Corpuscular Volume 77.3 fL (83.0-100.0); Mean Platelet Volume 9.8 fL (9.4-12.4); Monocytes # 0.6 K/mcL (0.0-1.3); Monocytes % 7.3 %; Platelet Count 207 K/mcL (140-400); Red Blood Count 4.62 M/mcL (3.82-4.97); Red Cell Distribution Width 17.2 % (11.5-14.5); Segmented Neutrophils % 64.2 %
[2017-07-26 06:11] LABS: Amphetamine Screen,Urine Positive ng/mL (Cutoff=1000); Barbiturate Screen,Urine Negative ng/mL (Cutoff=200); Benzodiazepines Screen,Urine Negative ng/mL (Cutoff=200); Cannabinoid Screen,Urine Positive ng/mL (Cutoff = 50); Cocaine Screen,Urine Positive ng/mL (Cutoff= 300); Opiate Screen,Urine Positive ng/mL (Cutoff=300); Phencyclidine Screen,Urine Negative ng/mL (Cutoff=25)
[2017-07-26 06:29] LABS: Acetaminophen < 10 mcg/mL (10-20); Alanine Aminotransferase 57 Units/L (7-52); Albumin 3.5 g/dL (3.5-5.7); Albumin/Globulin Ratio 1.1 (1.1-2.2); Alkaline Phosphatase 56 Units/L (34-104); Aspartate Amino Transferase 33 Units/L (13-39); BUN/Creatinine Ratio 16 (6-26); Bilirubin,Direct 0.1 mg/dL (0.0-0.2); Bilirubin,Indirect 0.2 mg/dL (0.0-1.2); Bilirubin,Total 0.3 mg/dL (0.3-1.0); Blood Urea Nitrogen 12 mg/dL (6-20); Calcium 8.6 mg/dL (8.6-10.3); Carbon Dioxide 26 mEq/L (23-29); Chloride 106 mEq/L (98-107); Ethanol < 10 mg/dL (Less than 10); Globulin 3.2 g/dL (2.4-3.5); Glucose 108 mg/dL (70-105); Osmolality,Calculated 286 (280-300); Potassium 3.2 mEq/L (3.5-5.1); Salicylate < 15.0 mg/dL (15.0-30.0); Sodium 138 mEq/L (136-145); Total Protein 6.7 g/dL (6.4-8.9); eGFR For African Americans > 60 (> 60); eGFR For Non-African Americans > 60 (> 60)
--- NOTE | 2017-07-26 06:30 | Emergency Department Note ---
Disposition Clinical Impression: Suicidal ideation, Polysubstance abuse Bipolar disorder Qualifiers: Active/Remission status: currently active Current bipolar episode type: mixed Current episode severity: unspecified Qualified Code(s): F31.60 - Bipolar disorder, current episode mixed, unspecified Disposition: Admitted As Inpatient Condition: Good Referrals: NONE,PCP [Primary Care Provider] - Forms: ED Satisfaction Letter Time of Disposition: 08:59 Psych HPI - General Chief Complaint: ED Psychiatric Symptoms Stated Complaint: SI/HI Time Seen by Provider: 07/26/17 05:34 Source: patient - Related Data Previous Rx's Medication Instructions Recorded Divalproex (24 HR) [Depakote ER 500 mg PO 0900,2100 #60 tab.er.24h 02/14/17 (24 HR)] Gabapentin [Neurontin] 600 mg PO TID #120 capsule 02/14/17 Melatonin 5 mg PO HS #30 tablet 02/14/17 Allergies Allergy/AdvReac Type Severity Reaction Status Date / Time No Known Allergies Allergy Verified 01/25/15 15:32 Constitutional: Denies: fever, chills Eyes: Denies: vision change ENT ED: Denies: throat pain Cardiovascular: Denies: palpitations Respiratory: Denies: dyspnea Gastrointestinal: Denies: abdominal pain, nausea, vomiting Genitourinary: Denies: dysuria Musculoskeletal: Denies: back pain Integumentary: Denies: rash Neurological: Denies: headache, weakness, numbness, paresthesias Psychiatric: Reports: as per HPI Endocrine: Denies: fatigue Hematological/Lymphatic: Denies: easy bleeding Allergic/Immunologic: Denies: facial swelling Past Medical History - Past Medical History Medical history: Reports: no medical history Surgical history: Reports: Psychiatric history: Reports: anxiety, ADHD, bipolar, depression, prior suicide attempt, schizophrenia, previous psychiatric hospitalization [employer] history: Reports: no [employer] history - Social History Smoking Status: Current every day smoker Smokeless Tobacco Status: No Alcohol use: Reports: none Drug use: Reports: cocaine, opiates, marijuana, methamphetamine, IV Drug Use, prescription drug abuse, other Physical Exam - General Limitations: no limitations General appearance: alert, in no apparent distress, anxious Course Course Narrative: 0600: I have assumed care of this patient from DALIA Razo, due to mid level shift change. Please see Dung's documentation for care performed prior to my arrival. Briefly, this is an alert and oriented nontoxic-appearing 37-year- old female that arrives by EMS with reported substance abuse. The patient admitted to a past 3 day history of methamphetamine use for recreational purposes. Earlier this morning, she states that she did ingest 30 prescription strength melatonin tablets in an attempt to inflict self-harm. She does have a history of polysubstance abuse. Medical clearance workup has been initiated. Poison control was contacted by DALIA Naav. The only recommendations made were to obtain EKG, hepatic panel, and monitor the patient for any symptomatic presentations. Plan on behavioral health evaluation after the patient is medically cleared. Vital Signs Temperature 98.7 F 07/26/17 05:28 Pulse Rate 82 07/26/17 05:28 Respiratory Rate 16 07/26/17 05:28 Blood Pressure 163/104 07/26/17 05:28 O2 Sat by Pulse Oximetry 99 07/26/17 05:28 Temperature 98.7 F 07/26/17 05:28 Pulse Rate 82 07/26/17 05:28 Respiratory Rate 16 07/26/17 05:28 Blood Pressure 163/104 07/26/17 05:28 O2 Sat by Pulse Oximetry 99 07/26/17 05:28 Oxygen Delivery Oxygen Delivery Room Air Psych - Lab Data Result diagrams: 07/26/17 05:53 07/26/17 05:53 Lab Results 07/26/17 07/26/17 07/26/17 Range/Units 05:30 05:30 05:30 WBC (4.3-11.1) K/mcL RBC (3.82-4.97) M/mcL Hgb (11.5-15.4) g/dL Hct (35.3-44.9) % MCV (83.0-100.0) fL MCH (28.0-33.3) pg MCHC (31.6-35.5) g/dL RDW (11.5-14.5) % Plt Count (140-400) K/mcL MPV (9.4-12.4) fL Immature Gran % (0-4) % Seg Neutrophils % % Lymphocytes % % Monocytes % % Eosinophils % % Basophils % % Neutrophils # (1.6-8.9) K/mcL Lymphocytes # (0.6-4.6) K/mcL Monocytes # (0.0-1.3) K/mcL Eosinophils # (0.0-0.6) K/mcL Basophils # (0.0-0.2) K/mcL Sodium (136-145) mEq/L Potassium (3.5-5.1) mEq/L Chloride (98-107) mEq/L Carbon Dioxide (23-29) mEq/L BUN (6-20) mg/dL Creatinine (0.60-1.20) mg/dL Est GFR ( Amer) (> 60) Est GFR (Non-Af Amer) (> 60) BUN/Creatinine Ratio (6-26) Glucose (70-105) mg/dL Calculated Osmolality (280-300) Calcium (8.6-10.3) mg/dL Total Bilirubin (0.3-1.0) mg/dL Direct Bilirubin (0.0-0.2) mg/dL Indirect Bilirubin (0.0-1.2) mg/dL AST (13-39) Units/L ALT (7-52) Units/L Alkaline Phosphatase (34-104) Units/L Serum Total Protein (6.4-8.9) g/dL Albumin (3.5-5.7) g/dL Globulin (2.4-3.5) g/dL Albumin/Globulin Ratio (1.1-2.2) Urine Color Yellow (Yellow) Urine Clarity Clear (Clear) Urine pH 6.0 (5.0-8.0) pH Units Ur Specific [place]cd[place] 1.019 (1.010-1.025) Urine Protein Negative (Neg-Trace) mg/dL Urine Glucose (UA) Normal (Normal) mg/dL Urine Ketones Negative (Negative) mg/dL Urine Blood Negative (Negative) Urine Nitrite Negative (Negative) Urine Bilirubin Negative (Negative) Urine Urobilinogen Normal (Normal) mg/dL Ur Leukocyte Esterase Small H (Negative) Urine Microscopic RBC 3-5 H (0-3) per hpf Urine Microscopic WBC 5-15 H (0-3) per hpf Ur Squamous Epith Cells Many H (None-Few) per lpf Urine Bacteria None Seen (None-Few) per hpf Hyaline Casts None Seen (None-Few) per lpf Urine Test Negative (Negative) Salicylates (15.0-30.0) mg/dL Urine Opiates Screen Positive H (Dapory=498) ng/mL Acetaminophen (10-20) mcg/mL Ur Barbiturates Screen Negative (Nyjaje=837) ng/mL Valproic Acid (50-100) mcg/mL Ur Phencyclidine Scrn Negative (Cutoff=25) ng/mL Ur Amphetamines Screen Positive H (Ukmhpx=8569) ng/mL U Benzodiazepines Scrn Negative (Ufcbds=176) ng/mL Urine Cocaine Screen Positive H (Cutoff= 300) ng/mL U Marijuana (THC) Screen Positive H (Cutoff = 50) ng/mL Ethyl Alcohol (Less than 10) mg/dL 07/26/17 07/26/17 Range/Units 05:53 05:53 WBC 7.9 (4.3-11.1) K/mcL RBC 4.62 (3.82-4.97) M/mcL Hgb 11.4 L (11.5-15.4) g/dL Hct 35.7 (35.3-44.9) % MCV 77.3 L (83.0-100.0) fL MCH 24.7 L (28.0-33.3) pg MCHC 31.9 (31.6-35.5) g/dL RDW 17.2 H (11.5-14.5) % Plt Count 207 (140-400) K/mcL MPV 9.8 (9.4-12.4) fL Immature Gran % 0.3 (0-4) % Seg Neutrophils % 64.2 % Lymphocytes % 23.9 % Monocytes % 7.3 % Eosinophils % 3.8 % Basophils % 0.5 % Neutrophils # 5.0 (1.6-8.9) K/mcL Lymphocytes # 1.9 (0.6-4.6) K/mcL Monocytes # 0.6 (0.0-1.3) K/mcL Eosinophils # 0.3 (0.0-0.6) K/mcL Basophils # 0.0 (0.0-0.2) K/mcL Sodium 138 (136-145) mEq/L Potassium 3.2 L (3.5-5.1) mEq/L Chloride 106 (98-107) mEq/L Carbon Dioxide 26 (23-29) mEq/L BUN 12 (6-20) mg/dL Creatinine 0.76 (0.60-1.20) mg/dL Est GFR ( Amer) > 60 (> 60) Est GFR (Non-Af Amer) > 60 (> 60) BUN/Creatinine Ratio 16 (6-26) Glucose 108 H (70-105) mg/dL Calculated Osmolality 286 (280-300) Calcium 8.6 (8.6-10.3) mg/dL Total Bilirubin 0.3 (0.3-1.0) mg/dL Direct Bilirubin 0.1 (0.0-0.2) mg/dL Indirect Bilirubin 0.2 (0.0-1.2) mg/dL AST 33 (13-39) Units/L ALT 57 H (7-52) Units/L Alkaline Phosphatase 56 (34-104) Units/L Serum Total Protein 6.7 (6.4-8.9) g/dL Albumin 3.5 (3.5-5.7) g/dL Globulin 3.2 (2.4-3.5) g/dL Albumin/Globulin Ratio 1.1 (1.1-2.2) Urine Color (Yellow) Urine Clarity (Clear) Urine pH (5.0-8.0) pH Units Ur Specific Mcdav[place] (1.010-1.025) Urine Protein (Neg-Trace) mg/dL Urine Glucose (UA) (Normal) mg/dL Urine Ketones (Negative) mg/dL Urine Blood (Negative) Urine Nitrite (Negative) Urine Bilirubin (Negative) Urine Urobilinogen (Normal) mg/dL Ur Leukocyte Esterase (Negative) Urine Microscopic RBC (0-3) per hpf Urine Microscopic WBC (0-3) per hpf Ur Squamous Epith Cells (None-Few) per lpf Urine Bacteria (None-Few) per hpf Hyaline Casts (None-Few) per lpf Urine Test (Negative) Salicylates < 15.0 L (15.0-30.0) mg/dL Urine Opiates Screen (Fvlptx=063) ng/mL Acetaminophen < 10 L (10-20) mcg/mL Ur Barbiturates Screen (Crbrmd=114) ng/mL Valproic Acid 4 L (50-100) mcg/mL Ur Phencyclidine Scrn (Cutoff=25) ng/mL Ur Amphetamines Screen (Lrdlpz=6403) ng/mL U Benzodiazepines Scrn (Vnlomi=934) ng/mL Urine Cocaine Screen (Cutoff= 300) ng/mL U Marijuana (THC) Screen (Cutoff = 50) ng/mL Ethyl Alcohol < 10 (Less than 10) mg/dL Psychiatric Medical Clearance - Medical Clearance Checklist Does the patient have a NEW psychiatric condition?: No Any abnormalities indicating possible medical illness?: No Any history of medical issues?: No Medical History: Suicidal ideation (Acute) Amitriptyline overdose (Acute) Drug overdose (Acute) Insomnia (Acute) Drug use (Acute) Tobacco use (Chronic) HTN (hypertension) (Chronic) Polysubstance abuse (Chronic) Bipolar disorder, manic (Acute) Bipolar disorder (Acute) Abdominal pain (Inactive) Abscess of skin or subcutaneous tissue (Inactive) Back pain (Inactive) Bronchitis (Inactive) Hypertension (Inactive) Lumbar back pain (Inactive) Lumbar pain (Inactive) Muscle spasm (Inactive) Sprain of ribs, initial encounter (Inactive) Strain of lumbar region (Inactive) Thoracic back pain (Inactive) No Social History Section defined Any abnormal vital signs prior to transfer?: No Current Vitals: Last Vital Signs Temp 98.7 F 07/26/17 05:28 Pulse 82 07/26/17 05:28 Resp 16 07/26/17 05:28 BP 163/104 07/26/17 05:28 Pulse Ox 99 07/26/17 05:28 Is the patient intoxicated or cognitively impaired?: No Psychiatric Lab Panel: Drug Levels and Toxicity 07/26/17 07/26/17 05:30 05:53 Urine Opiates Screen Positive H Acetaminophen < 10 L Ur Barbiturates Screen Negative Ur Phencyclidine Scrn Negative Ur Amphetamines Screen Positive H U Benzodiazepines Scrn Negative Urine Cocaine Screen Positive H U Marijuana (THC) Screen Positive H Ethyl Alcohol < 10 Any abnormalities on the physical exam?: No Any abnormal labs?: Yes (Mild hypokalemia, patient refuses correction) Abnormal Labs: Abnormal lab results Hgb 11.4 g/dL (11.5-15.4) L 07/26/17 05:53 MCV 77.3 fL (83.0-100.0) L 07/26/17 05:53 MCH 24.7 pg (28.0-33.3) L 07/26/17 05:53 RDW 17.2 % (11.5-14.5) H 07/26/17 05:53 Potassium 3.2 mEq/L (3.5-5.1) L 07/26/17 05:53 Glucose 108 mg/dL (70-105) H 07/26/17 05:53 ALT 57 Units/L (7-52) H 07/26/17 05:53 Ur Leukocyte Esterase Small (Negative) H 07/26/17 05:30 Urine Microscopic RBC 3-5 per hpf (0-3) H 07/26/17 05:30 Urine Microscopic WBC 5-15 per hpf (0-3) H 07/26/17 05:30 Ur Squamous Epith Cells Many per lpf (None-Few) H 07/26/17 05:30 Salicylates < 15.0 mg/dL (15.0-30.0) L 07/26/17 05:53 Urine Opiates Screen Positive ng/mL (Lndklu=662) H 07/26/17 05:30 Acetaminophen < 10 mcg/mL (10-20) L 07/26/17 05:53 Valproic Acid 4 mcg/mL (50-100) L 07/26/17 05:53 Ur Amphetamines Screen Positive ng/mL (Cnwxge=6337) H 07/26/17 05:30 Urine Cocaine Screen Positive ng/mL (Cutoff= 300) H 07/26/17 05:30 U Marijuana (THC) Screen Positive ng/mL (Cutoff = 50) H 07/26/17 05:30 Does the patient require durable medical equiptment?: No Is the patient ambulatory?: Yes Is the patient a fall risk?: No Has the patient been medically cleared?: Yes Any acute medical condition require Tx prior to transfer?: No Statement of Medical Clearance: I have evaluated the patient, reviewed diagnostic information, and certify that the patient's medical condition is sufficiently stable that transfer to the psychiatric unit does not pose a significant risk of deterioration.
[2017-07-26 07:39] LABS: Valproate 4 mcg/mL (50-100)
--- NOTE | 2017-07-26 09:37 | Emergency Department Note ---
Disposition Clinical Impression: Suicidal ideation, Polysubstance abuse Bipolar disorder Qualifiers: Active/Remission status: currently active Current bipolar episode type: mixed Current episode severity: unspecified Qualified Code(s): F31.60 - Bipolar disorder, current episode mixed, unspecified Disposition: Admitted As Inpatient Condition: Good General Adult HPI - General Chief complaint: ED Psychiatric Symptoms Stated complaint: SI/HI Time Seen by Provider: 07/26/17 05:34 Source: patient Limitations: no limitations - History of Present Illness Pain Scale: 0 - Related Data Home Medications Medication Instructions Recorded Confirmed Gabapentin [Neurontin] 800 mg PO TID 07/26/17 07/26/17 Melatonin [Melatonin] 6 mg PO HS 07/26/17 07/26/17 Previous Rx's Medication Instructions Recorded Divalproex (24 HR) [Depakote ER 500 mg PO 0900,2100 #60 tab.er.24h 02/14/17 (24 HR)] Allergies Allergy/AdvReac Type Severity Reaction Status Date / Time No Known Allergies Allergy Verified 07/26/17 09:16 Constitutional: Denies: fever, chills Eyes: Denies: vision change ENT ED: Denies: throat pain Cardiovascular: Denies: palpitations Respiratory: Denies: dyspnea Gastrointestinal: Denies: abdominal pain, nausea, vomiting Genitourinary: Denies: dysuria Musculoskeletal: Denies: back pain Integumentary: Denies: rash Neurological: Denies: headache, weakness, numbness, paresthesias Psychiatric: Reports: as per HPI Endocrine: Denies: fatigue Hematological/Lymphatic: Denies: easy bleeding Allergic/Immunologic: Denies: facial swelling Past Medical History - Past Medical History Medical history: Reports: no medical history Surgical history: Reports: Psychiatric history: Reports: anxiety, ADHD, bipolar, depression, prior suicide attempt, schizophrenia, previous psychiatric hospitalization JEWEL GAUGER history: Reports: no JEWEL GAUGER history - Social History Smoking Status: Current every day smoker Smokeless Tobacco Status: No Alcohol use: Reports: none Drug use: Reports: cocaine, opiates, marijuana, methamphetamine, IV Drug Use, prescription drug abuse, other Physical Exam - General Limitations: no limitations General appearance: alert, in no apparent distress, anxious Course Vital Signs Temperature 98.7 F 07/26/17 05:28 Pulse Rate 82 07/26/17 05:28 Respiratory Rate 16 07/26/17 05:28 Blood Pressure 163/104 07/26/17 05:28 O2 Sat by Pulse Oximetry 99 07/26/17 05:28 Temperature 98.7 F 07/26/17 05:28 Pulse Rate 82 07/26/17 05:28 Respiratory Rate 16 07/26/17 05:28 Blood Pressure 163/104 07/26/17 05:28 O2 Sat by Pulse Oximetry 99 07/26/17 05:28 Oxygen Delivery Oxygen Delivery Room Air Medical Decision Making - Lab Data Result diagrams: 07/26/17 05:53 07/26/17 05:53 Lab Results 07/26/17 07/26/17 07/26/17 Range/Units 05:30 05:30 05:30 WBC (4.3-11.1) K/mcL RBC (3.82-4.97) M/mcL Hgb (11.5-15.4) g/dL Hct (35.3-44.9) % MCV (83.0-100.0) fL MCH (28.0-33.3) pg MCHC (31.6-35.5) g/dL RDW (11.5-14.5) % Plt Count (140-400) K/mcL MPV (9.4-12.4) fL Immature Gran % (0-4) % Seg Neutrophils % % Lymphocytes % % Monocytes % % Eosinophils % % Basophils % % Neutrophils # (1.6-8.9) K/mcL Lymphocytes # (0.6-4.6) K/mcL Monocytes # (0.0-1.3) K/mcL Eosinophils # (0.0-0.6) K/mcL Basophils # (0.0-0.2) K/mcL Sodium (136-145) mEq/L Potassium (3.5-5.1) mEq/L Chloride (98-107) mEq/L Carbon Dioxide (23-29) mEq/L BUN (6-20) mg/dL Creatinine (0.60-1.20) mg/dL Est GFR ( Amer) (> 60) Est GFR (Non-Af Amer) (> 60) BUN/Creatinine Ratio (6-26) Glucose (70-105) mg/dL Calculated Osmolality (280-300) Calcium (8.6-10.3) mg/dL Total Bilirubin (0.3-1.0) mg/dL Direct Bilirubin (0.0-0.2) mg/dL Indirect Bilirubin (0.0-1.2) mg/dL AST (13-39) Units/L ALT (7-52) Units/L Alkaline Phosphatase (34-104) Units/L Serum Total Protein (6.4-8.9) g/dL Albumin (3.5-5.7) g/dL Globulin (2.4-3.5) g/dL Albumin/Globulin Ratio (1.1-2.2) Urine Color Yellow (Yellow) Urine Clarity Clear (Clear) Urine pH 6.0 (5.0-8.0) pH Units Ur Specific [place] 1.019 (1.010-1.025) Urine Protein Negative (Neg-Trace) mg/dL Urine Glucose (UA) Normal (Normal) mg/dL Urine Ketones Negative (Negative) mg/dL Urine Blood Negative (Negative) Urine Nitrite Negative (Negative) Urine Bilirubin Negative (Negative) Urine Urobilinogen Normal (Normal) mg/dL Ur Leukocyte Esterase Small H (Negative) Urine Microscopic RBC 3-5 H (0-3) per hpf Urine Microscopic WBC 5-15 H (0-3) per hpf Ur Squamous Epith Cells Many H (None-Few) per lpf Urine Bacteria None Seen (None-Few) per hpf Hyaline Casts None Seen (None-Few) per lpf Urine Test Negative (Negative) Salicylates (15.0-30.0) mg/dL Urine Opiates Screen Positive H (Hneizl=712) ng/mL Acetaminophen (10-20) mcg/mL Ur Barbiturates Screen Negative (Kvsfru=026) ng/mL Valproic Acid (50-100) mcg/mL Ur Phencyclidine Scrn Negative (Cutoff=25) ng/mL Ur Amphetamines Screen Positive H (Ssvyio=0312) ng/mL U Benzodiazepines Scrn Negative (Chrcgb=114) ng/mL Urine Cocaine Screen Positive H (Cutoff= 300) ng/mL U Marijuana (THC) Screen Positive H (Cutoff = 50) ng/mL Ethyl Alcohol (Less than 10) mg/dL 07/26/17 07/26/17 Range/Units 05:53 05:53 WBC 7.9 (4.3-11.1) K/mcL RBC 4.62 (3.82-4.97) M/mcL Hgb 11.4 L (11.5-15.4) g/dL Hct 35.7 (35.3-44.9) % MCV 77.3 L (83.0-100.0) fL MCH 24.7 L (28.0-33.3) pg MCHC 31.9 (31.6-35.5) g/dL RDW 17.2 H (11.5-14.5) % Plt Count 207 (140-400) K/mcL MPV 9.8 (9.4-12.4) fL Immature Gran % 0.3 (0-4) % Seg Neutrophils % 64.2 % Lymphocytes % 23.9 % Monocytes % 7.3 % Eosinophils % 3.8 % Basophils % 0.5 % Neutrophils # 5.0 (1.6-8.9) K/mcL Lymphocytes # 1.9 (0.6-4.6) K/mcL Monocytes # 0.6 (0.0-1.3) K/mcL Eosinophils # 0.3 (0.0-0.6) K/mcL Basophils # 0.0 (0.0-0.2) K/mcL Sodium 138 (136-145) mEq/L Potassium 3.2 L (3.5-5.1) mEq/L Chloride 106 (98-107) mEq/L Carbon Dioxide 26 (23-29) mEq/L BUN 12 (6-20) mg/dL Creatinine 0.76 (0.60-1.20) mg/dL Est GFR ( Amer) > 60 (> 60) Est GFR (Non-Af Amer) > 60 (> 60) BUN/Creatinine Ratio 16 (6-26) Glucose 108 H (70-105) mg/dL Calculated Osmolality 286 (280-300) Calcium 8.6 (8.6-10.3) mg/dL Total Bilirubin 0.3 (0.3-1.0) mg/dL Direct Bilirubin 0.1 (0.0-0.2) mg/dL Indirect Bilirubin 0.2 (0.0-1.2) mg/dL AST 33 (13-39) Units/L ALT 57 H (7-52) Units/L Alkaline Phosphatase 56 (34-104) Units/L Serum Total Protein 6.7 (6.4-8.9) g/dL Albumin 3.5 (3.5-5.7) g/dL Globulin 3.2 (2.4-3.5) g/dL Albumin/Globulin Ratio 1.1 (1.1-2.2) Urine Color (Yellow) Urine Clarity (Clear) Urine pH (5.0-8.0) pH Units Ur Specific [place] (1.010-1.025) Urine Protein (Neg-Trace) mg/dL Urine Glucose (UA) (Normal) mg/dL Urine Ketones (Negative) mg/dL Urine Blood (Negative) Urine Nitrite (Negative) Urine Bilirubin (Negative) Urine Urobilinogen (Normal) mg/dL Ur Leukocyte Esterase (Negative) Urine Microscopic RBC (0-3) per hpf Urine Microscopic WBC (0-3) per hpf Ur Squamous Epith Cells (None-Few) per lpf Urine Bacteria (None-Few) per hpf Hyaline Casts (None-Few) per lpf Urine Test (Negative) Salicylates < 15.0 L (15.0-30.0) mg/dL Urine Opiates Screen (Wwehlw=953) ng/mL Acetaminophen < 10 L (10-20) mcg/mL Ur Barbiturates Screen (Qrhaju=923) ng/mL Valproic Acid 4 L (50-100) mcg/mL Ur Phencyclidine Scrn (Cutoff=25) ng/mL Ur Amphetamines Screen (Ufvevj=4808) ng/mL U Benzodiazepines Scrn (Brtjqx=246) ng/mL Urine Cocaine Screen (Cutoff= 300) ng/mL U Marijuana (THC) Screen (Cutoff = 50) ng/mL Ethyl Alcohol < 10 (Less than 10) mg/dL Attestation Statement - Attestation Attestation: For this encounter, I have reviewed the SHUTTLE TRUCK DRIVER or PA documentation, treatment plan, and medical decision making; and I have had face to face time with this patient. Patient to ED from custodial with SI. States she took multiple melatonin attempt to harm herself. She is in no distress on examination awake alert and appropriate with clear lungs. Plan. Evaluated by and admitted to [facility]A.
[2017-07-26] MEDS ORDERED: hydrOXYzine pamoate 25 MG CAPSULE PO PRN (10:28)
[2017-07-26] MEDS ORDERED: MOM Conc 10 ML UD.LIQ PO PRN (10:28)
[2017-07-26] MEDS ORDERED: traZODone 50 MG TABLET PO PRN (10:28)
[2017-07-26] MEDS ORDERED: *HR* LORazepam 2 MG/ML VIAL IM PRN (10:28)
[2017-07-26] MEDS ORDERED: Mag Hydrox/Al Hydrox/Simeth 30 ML UDC PO PRN (10:28)
[2017-07-26] MEDS ORDERED: Haloperidol Lactate 5 MG/ML VIAL IM PRN (10:28)
[2017-07-26] MEDS: Gabapentin 400 MG CAPSULE PO SCH ×2 (15:35→21:39)
[2017-07-26] MEDS: Nicotine 2 MG GUM BC PRN ×2 (21:32→21:40)
[2017-07-26] MEDS: Divalproex (24 HR) 500 MG TABLET PO SCH (21:39)
[2017-07-26] MEDS: Melatonin 3 MG TABLET PO SCH (21:39)
[2017-07-27] MEDS: Acetaminophen 325 MG TABLET PO PRN ×2 (08:44→17:40)
[2017-07-27] MEDS: Divalproex (24 HR) 500 MG TABLET PO SCH ×2 (08:45→22:46)
[2017-07-27] MEDS: Gabapentin 400 MG CAPSULE PO SCH ×3 (08:45→21:56)
[2017-07-27] MEDS: Nicotine 2 MG GUM BC PRN ×4 (08:45→17:41)
--- NOTE | 2017-07-27 11:01 | Psychiatry History & Physical ---
Date of Encounter: 07/27/17 Time of Encounter: 10:00 History of Present Illness Patient Stated Chief Complaint: Overdose, suicidal ideation Medicare Admission Attestation: For traditional Medicare patients the provided hospital inpatient services are reasonable and necessary and in the case of services not specified as inpatient -only under 42 CFR 419.22 (n), that they are appropriately provided as inpatient services in accordance 42 CFR 412.3. For Critical [facility] the patient may reasonably be expected to be discharged or transferred to a hospital within 96 hours after admission to the Critical Access Hospital. Admitted From: Emergency Dept History of Present Illness: Ms. Nuñez is a 37 year old female admitted from the emergency department for evaluation overdose on melatonin and suicidal ideation. Patient had a history of bipolar disorder and polysubstance abuse. She is noncompliant with treatment or follow-up. UDS was positive for THC, amphetamine, cocaine, opiates. Patient was hospitalized in this units in January of last year for the same presentation, she was supposed to be taking medication including Depakote and her Depakote level was very low due to noncompliance. Patient reports lack of sleep for several days, feeling anxious and depressed and having suicidal thoughts. Past Med Surg Social Fam HX - Past Medical History Medical history: no medical history - Past Psychiatric History Psychiatric history: Reports: bipolar, previous psychiatric hospitalization - Past Surgical History Surgical History: - Social History Smoking Status: Current every day smoker Smokeless Tobacco Status: No Alcohol use: none Drug use: cocaine, opiates, marijuana, methamphetamine, IV Drug Use, prescription drug abuse, other Medications & Allergies Divalproex (24 HR) [Depakote ER (24 HR)] 500 mg PO 0900,2100 #60 tab.er.24h 06/01 [Rx] Gabapentin [Neurontin] 800 mg PO TID 07/26/17 [History] Melatonin [Melatonin] 6 mg PO HS 07/26/17 [History] 3 Allergy/AdvReac Type Severity Reaction Status Date / Time No Known Allergies Allergy Verified 07/26/17 09:16 Review of Systems Psychiatric: Reports: depression, anxiety, abnormal sleep pattern, suicidal ideation, mood swings Exam - HEENT Head exam IM: Present: atraumatic Eye exam IM: Present: EOMI, normal appearance, PERRL ENT exam IM: Present: normal exam - Neurological Neurological exam: Present: CN II-XII intact - Respiratory Respiratory exam IM: Present: CTAB - GI/Abdominal GI/Abdominal exam IM: Present: normal bowel sounds, soft. Absent: tenderness - Extremities Extremities exam IM: Present: full ROM - Skin Skin exam IM: Present: dry, warm - Constitutional Vitals: Temp Pulse Resp BP Pulse Ox 96.4 F L 76 18 161/106 99 07/27/17 09:00 07/27/17 09:00 07/27/17 09:00 07/27/17 09:00 07/26/17 05:28 General appearance: age & developmentally appropriate, well-nourished, unkempt, obese - Musculoskeletal Gait: normal Station: relaxed Strength & Tone: normal for patient - Psychiatric Patient Orientation: Yes Person, Yes Time, Yes Place Level of alertness: Alert Behavior: cooperative, anxious, restless, distractible, impulsive, talkative Psychomotor activity: Increased Eye Contact: Fleeting Contact Mood Description: Euthymic/stable, Euphoric, Labile, Irritable Affect description: congruent with mood, labile, euphoric Speech Volume: Normal Speech pattern: normal rate, normal rhythm, normal tone, fluent, spontaneous, pressured Language & Vocabulary: consistent with education Thought Process: Linear, Goal Oriented, Flight of Ideas Thought Content: Yes Suicidal ideation, No Homicidal ideation, No Overt delusions Perceptual Disturbances: No Auditory hallucinations, No Visual hallucinations Attention Span Ability: Unable to Focus Memory Description: Grossly Intact Patient Reliability: Questionable Historian Fund of knowledge: Yes abstraction ability, Yes average, Yes aware of current events Intelligence Estimate: Average Judgment: Limited Insight: Partial Results - Labs Labs: Laboratory Last Values WBC 7.9 K/mcL (4.3-11.1) 07/26/17 05:53 RBC 4.62 M/mcL (3.82-4.97) 07/26/17 05:53 Hgb 11.4 g/dL (11.5-15.4) L 07/26/17 05:53 Hct 35.7 % (35.3-44.9) 07/26/17 05:53 MCV 77.3 fL (83.0-100.0) L 07/26/17 05:53 MCH 24.7 pg (28.0-33.3) L 07/26/17 05:53 MCHC 31.9 g/dL (31.6-35.5) 07/26/17 05:53 RDW 17.2 % (11.5-14.5) H 07/26/17 05:53 Plt Count 207 K/mcL (140-400) 07/26/17 05:53 MPV 9.8 fL (9.4-12.4) 07/26/17 05:53 Immature Gran % 0.3 % (0-4) 07/26/17 05:53 Seg Neutrophils % 64.2 % 07/26/17 05:53 Lymphocytes % 23.9 % 07/26/17 05:53 Monocytes % 7.3 % 07/26/17 05:53 Eosinophils % 3.8 % 07/26/17 05:53 Basophils % 0.5 % 07/26/17 05:53 Neutrophils # 5.0 K/mcL (1.6-8.9) 07/26/17 05:53 Lymphocytes # 1.9 K/mcL (0.6-4.6) 07/26/17 05:53 Monocytes # 0.6 K/mcL (0.0-1.3) 07/26/17 05:53 Eosinophils # 0.3 K/mcL (0.0-0.6) 07/26/17 05:53 Basophils # 0.0 K/mcL (0.0-0.2) 07/26/17 05:53 Sodium 138 mEq/L (136-145) 07/26/17 05:53 Potassium 3.2 mEq/L (3.5-5.1) L 07/26/17 05:53 Chloride 106 mEq/L (98-107) 07/26/17 05:53 Carbon Dioxide 26 mEq/L (23-29) 07/26/17 05:53 BUN 12 mg/dL (6-20) 07/26/17 05:53 Creatinine 0.76 mg/dL (0.60-1.20) 07/26/17 05:53 Est GFR ( Amer) > 60 (> 60) 07/26/17 05:53 Est GFR (Non-Af Amer) > 60 (> 60) 07/26/17 05:53 BUN/Creatinine Ratio 16 (6-26) 07/26/17 05:53 Glucose 108 mg/dL (70-105) H 07/26/17 05:53 Calculated Osmolality 286 (280-300) 07/26/17 05:53 Calcium 8.6 mg/dL (8.6-10.3) 07/26/17 05:53 Total Bilirubin 0.3 mg/dL (0.3-1.0) 07/26/17 05:53 Direct Bilirubin 0.1 mg/dL (0.0-0.2) 07/26/17 05:53 Indirect Bilirubin 0.2 mg/dL (0.0-1.2) 07/26/17 05:53 AST 33 Units/L (13-39) 07/26/17 05:53 ALT 57 Units/L (7-52) H 07/26/17 05:53 Alkaline Phosphatase 56 Units/L (34-104) 07/26/17 05:53 Serum Total Protein 6.7 g/dL (6.4-8.9) 07/26/17 05:53 Albumin 3.5 g/dL (3.5-5.7) 07/26/17 05:53 Globulin 3.2 g/dL (2.4-3.5) 07/26/17 05:53 Albumin/Globulin Ratio 1.1 (1.1-2.2) 07/26/17 05:53 Urine Color Yellow (Yellow) 07/26/17 05:30 Urine Clarity Clear (Clear) 07/26/17 05:30 Urine pH 6.0 pH Units (5.0-8.0) 07/26/17 05:30 Ur Specific [place] 1.019 (1.010-1.025) 07/26/17 05:30 Urine Protein Negative mg/dL (Neg-Trace) 07/26/17 05:30 Urine Glucose (UA) Normal mg/dL (Normal) 07/26/17 05:30 Urine Ketones Negative mg/dL (Negative) 07/26/17 05:30 Urine Blood Negative (Negative) 07/26/17 05:30 Urine Nitrite Negative (Negative) 07/26/17 05:30 Urine Bilirubin Negative (Negative) 07/26/17 05:30 Urine Urobilinogen Normal mg/dL (Normal) 07/26/17 05:30 Ur Leukocyte Esterase Small (Negative) H 07/26/17 05:30 Urine Microscopic RBC 3-5 per hpf (0-3) H 07/26/17 05:30 Urine Microscopic WBC 5-15 per hpf (0-3) H 07/26/17 05:30 Ur Squamous Epith Cells Many per lpf (None-Few) H 07/26/17 05:30 Urine Bacteria None Seen per hpf (None-Few) 07/26/17 05:30 Hyaline Casts None Seen per lpf (None-Few) 07/26/17 05:30 Urine Test Negative (Negative) 07/26/17 05:30 Salicylates < 15.0 mg/dL (15.0-30.0) L 07/26/17 05:53 Urine Opiates Screen Positive ng/mL (Viurjd=492) H 07/26/17 05:30 Acetaminophen < 10 mcg/mL (10-20) L 07/26/17 05:53 Ur Barbiturates Screen Negative ng/mL (Txjmcw=506) 07/26/17 05:30 Valproic Acid 4 mcg/mL (50-100) L 07/26/17 05:53 Ur Phencyclidine Scrn Negative ng/mL (Cutoff=25) 07/26/17 05:30 Ur Amphetamines Screen Positive ng/mL (Tuhdpx=2575) H 07/26/17 05:30 U Benzodiazepines Scrn Negative ng/mL (Vlmxmm=405) 07/26/17 05:30 Urine Cocaine Screen Positive ng/mL (Cutoff= 300) H 07/26/17 05:30 U Marijuana (THC) Screen Positive ng/mL (Cutoff = 50) H 07/26/17 05:30 Ethyl Alcohol < 10 mg/dL (Less than 10) 07/26/17 05:53 Assessment and Plan (1) Bipolar disorder Current visit: Yes Status: Acute Plan: Admit inpatient for safety and stabilization, Close observation, Suicide Precautions per unit protocol, Encourage participation in unit milieu, Group Therapy, Monitor sleep, Monitor appetite Risks, benefits, side effects, alternatives discussed w/pt: Yes Patient agreeable to treatment: Yes Estimated Length of Stay (Days): 7 Qualifiers: Active/Remission status: currently active Current bipolar episode type: mixed Current episode severity: unspecified Qualified Code(s): F31.60 - Bipolar disorder, current episode mixed, unspecified (2) Polysubstance abuse Current visit: Yes Status: Chronic Plan: Admit inpatient for safety and stabilization, Close observation, Suicide Precautions per unit protocol, Encourage participation in unit milieu, Group Therapy, Monitor sleep, Monitor appetite Risks, benefits, side effects, alternatives discussed w/pt: Yes Patient agreeable to treatment: Yes (3) Drug overdose Current visit: No Status: Acute Plan: Admit inpatient for safety and stabilization, Close observation, Suicide Precautions per unit protocol, Encourage participation in unit milieu, Group Therapy, Monitor sleep, Monitor appetite Risks, benefits, side effects, alternatives discussed w/pt: Yes Patient agreeable to treatment: Yes Qualifiers: Encounter type: subsequent encounter Injury intent: undetermined intent Qualified Code(s): T50.904D - Poisoning by unspecified drugs, medicaments and biological substances, undetermined, subsequent encounter
[2017-07-27] MEDS: *HR* LORazepam 1 MG TABLET PO PRN (13:21)
[2017-07-27] MEDS: Melatonin 3 MG TABLET PO SCH (21:56)
[2017-07-28] MEDS: Gabapentin 400 MG CAPSULE PO SCH ×3 (10:00→20:58)
[2017-07-28] MEDS: Divalproex (24 HR) 500 MG TABLET PO SCH ×2 (10:01→21:21)
[2017-07-28] MEDS: Nicotine 2 MG GUM BC PRN ×4 (10:02→20:59)
--- NOTE | 2017-07-28 11:18 | Psychiatry Progress Note ---
Date of Encounter: 07/28/17 Time of Encounter: 11:14 Subjective Interval history: Patient seen for follow-up. Case discussed with nursing staff. Staff report patient had an episode yesterday where she was manic, disruptive, loud and argumentative with nursing staff and required when necessary medication that was effective. Today she reports had a good night sleep, continued display pressured speech and euphoric behavior and irritability. Depakote level will be checked. She denies suicidal ideation. Review of Systems Psychiatric: Reports: depression, anxiety, abnormal sleep pattern, suicidal ideation, mood swings Results - Vital Signs Vital Signs: Temp Pulse Resp BP Pulse Ox 98.4 F 84 16 151/100 99 07/28/17 09:00 07/28/17 09:00 07/28/17 09:00 07/28/17 09:00 07/26/17 05:28 Assessment and Plan (1) Bipolar disorder Current visit: Yes Status: Acute Plan: Continue hospitalization, Close observation, Suicide Precautions per unit protocol, Encourage participation in unit milieu, Group Therapy, Monitor sleep, Monitor appetite Additional Plan: Depakote level in a.m. Risks, benefits, side effects, alternatives discussed w/pt: Yes Patient agreeable to treatment: Yes Qualifiers: Active/Remission status: currently active Current bipolar episode type: mixed Current episode severity: unspecified Qualified Code(s): F31.60 - Bipolar disorder, current episode mixed, unspecified (2) Polysubstance abuse Current visit: Yes Status: Chronic Plan: Continue hospitalization, Close observation, Suicide Precautions per unit protocol, Encourage participation in unit milieu, Group Therapy, Monitor sleep, Monitor appetite Risks, benefits, side effects, alternatives discussed w/pt: Yes Patient agreeable to treatment: Yes (3) Drug overdose Current visit: No Status: Acute Plan: Continue hospitalization, Close observation, Suicide Precautions per unit protocol, Encourage participation in unit milieu, Group Therapy, Monitor sleep, Monitor appetite Risks, benefits, side effects, alternatives discussed w/pt: Yes Patient agreeable to treatment: Yes Qualifiers: Encounter type: subsequent encounter Injury intent: undetermined intent Qualified Code(s): T50.904D - Poisoning by unspecified drugs, medicaments and biological substances, undetermined, subsequent encounter Consult Discharge Plan - Plan Referrals: NONE,PCP [Primary Care Provider] - Psychiatry Exam - Constitutional Vitals: Temp Pulse Resp BP Pulse Ox 98.4 F 84 16 151/100 99 07/28/17 09:00 07/28/17 09:00 07/28/17 09:00 07/28/17 09:00 07/26/17 05:28 General appearance: age & developmentally appropriate, well-groomed, well- nourished, obese - Musculoskeletal Gait: normal Station: relaxed Strength & Tone: normal for patient - Psychiatric Patient Orientation: Yes Person, Yes Time, Yes Place Level of alertness: Alert Behavior: cooperative, distractible, impulsive, talkative Psychomotor activity: Increased Eye Contact: Maintains Eye Contact Mood Description: Euthymic/stable, Euphoric, Labile, Irritable Affect description: congruent with mood, labile Speech Volume: Normal, Loud Speech pattern: normal rate, normal rhythm, normal tone, fluent, spontaneous, excessive Language & Vocabulary: consistent with education Thought Process: Linear, Goal Oriented Thought Content: No Suicidal ideation, No Homicidal ideation, No Overt delusions Perceptual Disturbances: No Auditory hallucinations, No Visual hallucinations Attention Span Ability: Capable of Focused Attention Memory Description: Grossly Intact Patient Reliability: Reliable Historian Fund of knowledge: Yes abstraction ability, Yes aware of current events Intelligence Estimate: Average Judgment: Limited Insight: Partial
[2017-07-28] MEDS: Acetaminophen 325 MG TABLET PO PRN ×2 (14:20→18:19)
[2017-07-28] MEDS: Melatonin 3 MG TABLET PO SCH (20:57)
[2017-07-28] MEDS: *HR* LORazepam 1 MG TABLET PO PRN (20:58)
[2017-07-29] MEDS: Acetaminophen 325 MG TABLET PO PRN ×2 (06:14→12:26)
[2017-07-29] MEDS: Divalproex (24 HR) 500 MG TABLET PO SCH (09:34)
[2017-07-29] MEDS: Gabapentin 400 MG CAPSULE PO SCH ×2 (09:35→14:40)
[2017-07-29 09:40] VITALS: BP 158/115
[2017-07-29] MEDS: Nicotine 2 MG GUM BC PRN (12:26)
--- NOTE | 2017-07-29 14:53 | Discharge Summary ---
Date of Encounter: 07/29/17 Time of Encounter: 14:15 Diagnosis - Discharge Diagnosis (1) Bipolar disorder, current episode manic without psychotic features Status: Acute (2) Patient's noncompliance with other medical treatment and regimen Status: Acute (3) Uncomplicated opioid abuse Status: Acute (4) Other stimulant abuse, uncomplicated Status: Acute Medications - Discharge Medications Prescriptions: Divalproex (24 HR) [Depakote ER (24 HR)] 500 mg PO 0900,2099 30 Days #60 tab.er.24h Gabapentin [Neurontin] 800 mg PO TID 30 Days #90 tablet hydrOXYzine pamoate [HydrOXYzine Pamoate] 25 mg PO TID PRN 14 Days #14 capsule PRN Reason: Anxiety Melatonin 6 mg PO HS 30 Days #60 tablet traZODone [TraZODone] 50 mg PO HS PRN 14 Days #14 tablet PRN Reason: Insomnia Divalproex (24 HR) [Depakote ER (24 HR)] 500 mg PO 0900,2100 30 Days #60 tab.er.24h 07/29/17 [Rx] Gabapentin [Neurontin] 800 mg PO TID 30 Days #90 tablet 07/29/17 [Rx] Melatonin 6 mg PO HS 30 Days #60 tablet 07/29/17 [Rx] hydrOXYzine pamoate [HydrOXYzine Pamoate] 25 mg PO TID PRN 14 Days #14 capsule 07/29/17 [Rx] traZODone [TraZODone] 50 mg PO HS PRN 14 Days #14 tablet 07/29/17 [Rx] 3 Allergy/AdvReac Type Severity Reaction Status Date / Time No Known Allergies Allergy Verified 07/26/17 09:16 Results Procedures and tests throughout hospitalization: Completed Lab Orders Category Date Time Status Valproate AM 0400 Lab 07/29/17 09:32 Completed Provider Date of admission: 07/26/17 10:05 Primary care physician: PCP NONE Discharging clinician: [facility] Exam - Constitutional Vitals: Temp Pulse Resp BP Pulse Ox 98.9 F 116 20 158/115 99 07/29/17 09:00 07/29/17 09:00 07/29/17 09:00 07/29/17 09:00 07/26/17 05:28 General appearance: age & developmentally appropriate, inappropriate - Musculoskeletal Gait: normal Station: other Strength & Tone: normal for patient - Psychiatric Patient Orientation: Yes Person, Yes Time, Yes Place, Yes Circumstance Level of alertness: Alert Behavior: calm Psychomotor activity: Normal Eye Contact: Maintains Eye Contact Mood Description: Euthymic/stable Affect description: congruent with mood, euthymic Speech Volume: Normal Speech pattern: normal rate, normal rhythm Language & Vocabulary: consistent with education Thought Process: Intact Thought Content: Yes Intact Perceptual Disturbances: No Auditory hallucinations, No Visual hallucinations Attention Span Ability: Capable of Focused Attention Memory Description: Grossly Intact Patient Reliability: Reliable Historian Fund of knowledge: Yes abstraction ability Intelligence Estimate: Above [place] Judgment: Fair Insight: Partial Hospital Course Hospital course: Ms. Nuñez is a 37 year old female The patient was seen on the unit. She had improved significantly since her admission. It was revealed to her that she had cocaine amphetamine opiates and marijuana in her system. The patient seemed to indicate that she felt that she can handle her bipolar disorder by going off and doing drugs from time to time. The patient was counseled on her overt noncompliance and the need for adherence. The patient agreed that she needed to continue her medicine and she wished remain on Depakote monotherapy she reports she did not tolerate Abilify in the past. She agreed to have confidential conversations with her providers in mental health and [place]. The patient still had mild symptoms of distractibility and impulsivity some tangential thinking but did not have hyperactivity euphoria or pressured speech at the time of discharge. She reported no side effects at the time of discharge. Patient was advised not to exceed 6 mg of melatonin. She was advised against the use of illicit marijuana and drugs abuse. The patient stated that she had an interest in medical marijuana and she was given a variety of resources where she can consider this in the fall of 2017 and the [facility]. Nonetheless patient was counseled against sleep deprivation as this can trigger bentley. Time spent discussing smoking cessation with patient: 3 to 10 minutes Does patient wish to continue nicotine replacement upon disc: No - Time Spent with Patient Total time spent providing and/or coordinating discharge services: Less than 30 minutes Assessment and Plan - Patient/Caregiver Discharge Instructions Activity: resume usual activities as tolerated Diet: regular diet - [facility] 10:00 am (The above appointment is with Mikayla Condon for outpatient mental health and substance abuse counseling services. After you are seen by age, you will be referred to the psychiatric prescriber for medication management services.) Functional capacity at discharge: independent ambulation Overall status at discharge: Stable Disposition: Home, Self-Care Quality - Multiple Antipsychotics Patient discharged on 2 or more antipsychotic medications: No Procedures - Procedures Procedures: Medication Management, Crisis Stabilization, Supportive Therapy, Group Therapy, Psychoeducational Therapy
== END 2017-07-29 16:07 | disposition home or self-care (01) | DRG 812 ==
LOC: EMEROO 05:25 → 1ANU 05:25 → SUATTDRO 10:05
PROVIDERS: ADMIT Psychiatry & Neurology Psychiatry; ATTEND Psychiatry & Neurology Forensic Psychiatry